=== PATIENT | male | born 1970 | race Caucasian/White ===

== ENCOUNTER 2023-06-21 10:00 | Outpatient (OUT) | payer OTHER, SELFPAY ==
--- NOTE | 2023-06-21 10:13 | XR_ITS ---
[address] [address] Patient Name: ELY STARKEY MRN: [id number] date: 1970 Sex: M Assigned Patient Location: RAD Current Patient Location: RAD Accession/Order Number: [id number] Exam Date: 06/21/2023 10:22 Report Date: 06/21/2023 12:12 At the request of: PRATIK STONE Procedure: XR knee RT 4V EXAM: XR knee RT 4V HISTORY: Acute Pain Of Right Knee M25.561 COMPARISON: None. TECHNIQUE: 4 views FINDINGS: No acute fracture or dislocation. Mild degenerative changes of the knee. Mild soft tissue swelling. XR/XR knee RT 4V IMPRESSION: Degenerative changes as above. Electronically authenticated by: ENDY AYOUB Date: 06/21/2023 12:12
== END 2023-06-21 10:01 | disposition home or self-care (01) ==
LOC: RAD 10:00
PROVIDERS: Family Provider Family Medicine; Visit Provider Orthopaedic Surgery
DX: M25.561 Pain in right knee (principal)
CPT/HCPCS: 73564

== ENCOUNTER 2023-07-08 08:41 | Outpatient (OUT) | payer OTHER, SELFPAY ==
--- NOTE | 2023-07-08 08:45 | MR_ITS ---
The [address] [address] Patient Name: ELY STARKEY MRN: [id number] date: 1970 Sex: M Assigned Patient Location: MRI Current Patient Location: MRI Accession/Order Number: [id number] Exam Date: 07/08/2023 09:00 Report Date: 07/08/2023 10:16 At the request of: PRATIK STONE Procedure: MR knee RT wo con EXAM: MR knee RT wo con REASON FOR EXAM: Acute Pain Of Right Knee M25.561. TECHNIQUE: Multiplanar, multisequence imaging of the right knee was performed without contrast COMPARISON: Plain radiograph 06/21/2023. FINDINGS: Laterally, the iliotibial band, fibular collateral ligament, popliteus tendon and biceps tendon are intact. The ACL is intact. Lateral meniscus demonstrates normal morphology and signal without tear. Low to intermediate grade chondrosis of the lateral compartment. Medially, the medial collateral ligament is intact. The PCL is intact. The medial meniscus demonstrates normal morphology and signal without tear. Diffuse intermediate grade chondrosis of the lateral compartment with more focal deep chondrosis and deep fissuring involving the central and notch third of the medial femoral condyle central weightbearing. Subchondral marrow edema is present this level. The extensor mechanism is intact. Mild thickening and intermediate signal patella tendon is consistent with tendinosis. No tear. Intermediate grade chondrosis the patellofemoral cartilage. The bone marrow signal is without fracture. Trace joint effusion. The regional musculature is without muscle strain or tendon tear. MR/MR knee RT wo con IMPRESSION: 1. Tricompartmental chondrosis, most significant the medial compartment. 2. Intact menisci, cruciate and collateral ligaments. 3. 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 4. Trace joint effusion Electronically authenticated by: ELY BOWMAN Date: 07/08/2023 10:16
== END 2023-07-08 08:42 | disposition home or self-care (01) ==
LOC: MRI 08:41
PROVIDERS: Family Provider Family Medicine; Visit Provider Orthopaedic Surgery
DX: M25.561 Pain in right knee (principal); M25.461 Effusion, right knee
CPT/HCPCS: 73721

== ENCOUNTER 2024-04-11 20:55 | Outpatient (OUT) | payer OTHER, SELFPAY ==
--- OUTSIDE RECORDS SUMMARY | 2024-04-11 21:03 | XMS_ITS | CCD ---
Author Organization [facility] Care Team Providers Care Magazine Hand Name Role Phone Carl SALCIDO, Earline La Attending Unavailable Geovanni Morales Unavailable MD Karen Shafer Primary Care Provider [phone] MD Geovanni Morales Attending Provider Geovanni Morales Admitting Unavailable Geovanni Morales Attending Unavailable Karen Shafer Primary Care Unavailable Genia Sam Attending Unavailable Genia Sam Admitting Unavailable Soni [facility] Primary Care Unavailable CASA PAZ Attending Unavailable KAREN SHAFER Attending Unavailable Medications Current Medications Medication Drug Class(es) Dates Sig (Normalized) Sig (Original) [place] (No Known Home Meds) (1 source) Start: 08-12-2022 [place] (No Known Home Meds) Active August 12, 2022 12:00am Completed/Discontinued Medications Medication Drug Class(es) Dates Sig (Normalized) Sig (Original) amoxicillin 875 mg / clavulanate 125 mg oral tablet (1 source) Penicillin-class Antibacterial Start: 03-25-2022 End: 08-12-2022 take 1 tablet by mouth every eight hours Amoxicillin-Pot Clavulanate Discontinued 1 TAB PO Q8H 30 10 March 24, 2022 11:00pm August 12, 2022 9:49am Problems Active Problems Problem Classification Problem Date Documented Da te Episodic/Chronic Diverticulosis and diverticulitis (3 sources) Diverticulitis; Translations: [Diverticulitis of intestine, part unspecified, without perforation or abscess without bleeding] Chronic Other aftercare (1 source) Encounter for follow-up examination after completed treatment for conditions other than malignant neoplasm; Translations: [Encounter for follow-up examination after completed treatment for conditions other than malignant neoplasm] Onset: 12-21-2022 Episodic Past or Other Problems Problem Classification Problem Date Documented Da te Episodic/Chronic Abdominal pain (1 source) Left lower quadrant pain; Translations: [Left lower quadrant pain] Onset: 03-25-2022 Episodic Results Test Name Value Interpretation Reference Range Mariann Jackson 08-12-2022 L - -------- Specimen: [id number] Received: 08/12/22 Status: TOYA Feng Num: [id number] Spec Type: Surgical Subm Dr: Geovanni Morales MD Tissues: A Colon Biopsy (CECAL POLYP) Procedures: Filippo LEBRON/Dorys L4 -------- Age/ Patient Sex Location Account Attending Physician -------- Ely Varma/M [id number] Geovanni Morales MD -------- SPEC NUM: [id number] RECD: 08/12/22 STATUS: TOYA FENG NUM: [id number] JOSH: 08/12/22 DR: Geovanni Morales MD ENTERED: 08/12/[address] [facility] [address]: SPEC TYPE: Surgical DEPT: S ORDERED: HE/2, Gross/Micro L4 ORDERED: HE/2, Gross/Micro L4 Pathological Diagnosis Colon, cecum, polypectomy: - Tubular adenoma of colon, no high grade dysplasia seen. Clinical Information History of diverticulitis Gross Description Received in formalin labeled with the patient's name, number and cecal polyp is one fragment of soft galarza tissue measuring 0.5 x 0.3 x 0.2 cm. Entirely submitted in one cassette labeled A1. Microscopic Description Two glass slides with H E stained material have been examined. The microscopic findings support the above pathologic diagnosis. CPT Codes 25450 -------- -------- Specimen: [id number] Received: 08/12/22 Status: TOYA Feng Num: [id number] Spec Type: Surgical Subm Dr: Geovanni Morales MD Tissues: A Colon Biopsy (CECAL POLYP) Procedures: HE/2, Gross/Micro L4 -------- Patient: Ely Varma [id number] (Continued) -------- Signed (signature on file) Josh Carlos MD 08/13/22 09[address] [facility] CT abdomen pelvis w conon CT abdomen pelvis w [facility] [place] [address] CT Scan Report Signed Patient: Ely Varma MR#: [id number] : 1970 Acct:[id number] Age/Sex: 51 / M ADM Date: 03/25/22 Loc: ER Room: Type: [facility] Attending Dr: Copies to: Genia Sam PA-C Ordering Provider: Genia Sam PA-C Date of Service: 03/25/22 CT/CT abdomen pelvis w con: abd pain CT abdomen and pelvis withcontrast TECHNIQUE: Axial imaging with 2-D reconstruction.90 cc of Isovue-300. The CT exam was performed using one or more the following dose reduction techniques: Automated exposure control, adjustment of the MA and/or Kv according to patient size, or use of the iterative reconstruction technique. COMPARISON:None History: Intermittent abdominal pain. LEFT lower quadrant pain. Lung bases are unremarkable. No hepatic mass or intrahepatic biliary ductal dilatation identified. Normal density of the liver parenchyma identified. No gallbladder abnormality identified. No extrahepatic biliary ductal dilatation identified. There is no splenomegaly or splenic mass identified. No pancreatic mass or ductal dilatation identified. The adrenal glands are unremarkable. No nephrolithiasis or obstructive uropathy is identified. No abdominal aortic aneurysm identified. No significant retroperitoneal abnormalities identified. The small bowel loops are nondistended. The appendix is normal. Diffuse colonic diverticulosis identified. There is focal wall thickening of the possible portion of the sigmoid colon and distal portion of the descending colon with inflammation adjacent to numerous diverticula consistent with acute diverticulitis. No extraluminal air. No abscess. Urinary bladder is unremarkable. Reproductive structures are unremarkable. No free intraperitoneal air or fluid is identified. The bony structures are unremarkable. No subcutaneous soft tissue abnormality identified. CT/CT abdomen pelvis w con IMPRESSION: The distal descending and proximal sigmoid acute diverticulitis. No abscess. No pneumoperitoneum. Impression dictated by: Carmine Powers M.D.03/25/2022 4:54 PM Dictation Location: [place] [address] Transcribed By: [facility] 03/25/22 1654 Dictated By: Carmine Powers DO 03/25/22 1649 Signed By: 03/25/22 1654 Normal [facility] Complete Blood Count Auto Di ffon 03-25-2022 Basophils (Bld) [#/Vol] 0.0 10*3/uL Normal 0.0-0.2 [facility] Comment on above: Result Comment: PERF ORMED BY: [place] [address] PATHOLOGIST [employer]SE[employer] NAOMY MURPHY M.D. Performed By: #### C MP, CBC #### [facility] [address] [place] [address] [place] Basophils/100 WBC (Bld) 0.4 % Normal . [facility] Comment on above: Performed By: #### C MP, CBC #### [facility] [address] [place] [address] [place] Eosinophils (Bld) [#/Vol] 0.0 10*3/uL Normal 0.0-0.45 [facility] Comment on above: Performed By: #### C MP, CBC #### [facility] [address] [place] [address] [place] Eosinophils/100 WBC (Bld) 0.2 % Normal . [facility] Comment on above: Performed By: #### C MP, CBC #### [address] Erythrocyte distribution width (RBC) [Ratio] 13.6 % Normal 12.0-14.8 [facility] Comment on above: Performed By: #### C MP, CBC #### [address] Hematocrit (Bld) [Volume fraction] 49.6 % Normal 38.8-50.0 [facility] Comment on above: Performed By: #### C MP, CBC #### [address] Hemoglobin (Bld) [Mass/Vol] 16.6 g/dL Normal 13.0-17.0 [facility] Comment on above: Performed By: #### C MP, CBC #### [address] Lymphocytes (Bld) [#/Vol] 3.0 10*3/uL Normal 1.00-4.8 [facility] Comment on above: Performed By: #### C MP, CBC #### [address] Lymphocytes/100 WBC (Bld) 25.5 % Normal . [facility] Comment on above: Performed By: #### C MP, CBC #### [address] MCH (RBC) [Entitic mass] 29.6 pg Normal 27.5-35.2 [facility] Comment on above: Performed By: #### C MP, CBC #### [address] MCV (RBC) [Entitic vol] 88.3 fL Normal 83.5-101 [facility] Comment on above: Performed By: #### C MP, CBC #### [address] Mean Corpuscular HGB Conc 33.5 g/dL Normal 32.5-35.6 [facility] Comment on above: Performed By: #### C MP, CBC #### [facility] [address] [place] [address] [place] Monocytes (Bld) [#/Vol] 0.8 10*3/uL Normal 0.0-0.8 [facility] Comment on above: Performed By: #### C MP, CBC #### [facility] [address] [place] [address] [place] Monocytes/100 WBC (Bld) 7.1 % Normal . [facility] Comment on above: Performed By: #### C MP, CBC #### [facility] [address] [place] [address] [place] Neutrophils (Bld) [#/Vol] 7.8 10*3/uL High 1.8-7.7 [facility] Comment on above: Performed By: #### C MP, CBC #### [facility] [address] [place] [address] [place] Neutrophils/100 WBC (Bld) 66.8 % Normal . [facility] Comment on above: Performed By: #### C MP, CBC #### [facility] [address] [place] [address] [place] Nucleated RBC/100 WBC (Bld) [Ratio] 0.0 % Normal 0-0.5 [facility] Comment on above: Performed By: #### C MP, CBC #### [facility] [address] [place] [address] [place] Platelet mean volume (Bld) [Entitic vol] 8.6 fL Normal 6.6-10.1 [facility] Comment on above: Performed By: #### C MP, CBC #### [facility] [address] [place] [address] [place] Platelets (Bld) [#/Vol] 216 10*3/uL Normal 150-450 [facility] Comment on above: Performed By: #### C MP, CBC #### [facility] [address] [place] [address] [place] RBC (Bld) [#/Vol] 5.62 10*6/uL High 3.90-5.60 [facility] Comment on above: Performed By: #### C MP, CBC #### [address] WBC (Bld) [#/Vol] 11.7 10*3/uL High 4.5-11.0 [facility] Comment on above: Performed By: #### C MP, CBC #### [address] Comprehensive Metabolic Pane becca 03-25-2022 Albumin [Mass/Vol] 3.9 g/dL Normal 3.2-5.5 [facility] Comment on above: Performed By: #### C MP, CBC #### [address] Albumin/Globulin [Mass ratio] 1.1 {ratio} Normal [facility] Comment on above: Performed By: #### C MP, CBC #### [address] ALP [Catalytic activity/Vol] 83 U/L Normal 32-92 [facility] Comment on above: Performed By: #### C MP, CBC #### [address] ALT [Catalytic activity/Vol] 25 U/L Normal 10-60 [facility] Comment on above: Performed By: #### C MP, CBC #### [address] AST [Catalytic activity/Vol] 19 U/L Normal 10-42 [facility] Comment on above: Performed By: #### C MP, CBC #### [address] Bilirubin [Mass/Vol] 2.4 mg/dL High 0.3-1.2 [facility] Comment on above: Result Comment: Samp les from patients who have taken Naproxen have shown spurious elevation in Total Bilirubin levels. A metabolite of Naproxen, O-desmethylnaproxen, has been shown to interfere with the Heidi-Kathy method for measuring Total Bilirubin. Performed By: #### C MP, CBC #### [facility] [address] Calcium [Mass/Vol] 9.6 mg/dL Normal 8.2-10.2 [facility] Comment on above: Performed By: #### C MP, CBC #### [facility] [address] Chloride [Moles/Vol] 101 mmol/L Normal 95-114 [facility] Comment on above: Performed By: #### C MP, CBC #### [address] CO2 [Moles/Vol] 26.3 mmol/L Normal 22.0-30.0 [facility] Comment on above: Performed By: #### C MP, CBC #### [address] Creatinine [Mass/Vol] 0.95 mg/dL Normal 0.64-1.27 [facility] Comment on above: Performed By: #### C MP, CBC #### [place] [address] [place] Creatinine Clr Calc Pharmacy 104.97 [facility] Comment on above: Result Comment: PERF ORMED BY: [place] [address] PATHOLOGIST [employer] HOUSEK[employer] NAOMY MURPHY M.D. Performed By: #### C MP, CBC #### [address] Estimated GFR ( Gini > 60 [facility] Comment on above: Result Comment: GFR estimated reference range: According to KDOQI guidelines, <60 ml/min/1.73m2 is sufficient to diagnose a patient with chronic kidney disease. Performed By: #### C MP, CBC #### [address] Estimated GFR (Non- Am > 60 [facility] Comment on above: Performed By: #### C MP, CBC #### [address] [place] [address] [place] Globulin (S) [Mass/Vol] 3.7 g/dL Normal [facility] Comment on above: Performed By: #### C MP, CBC #### [address] Glucose [Mass/Vol] 151 mg/dL High 70-100 [facility] Comment on above: Result Comment: [facility] Glucose Reference Range is dependent on time and content of last meal. Glucose of more than 200 mg/dL in a nonstressed, ambulatory subject supports the diagnosis of Diabetes Mellitus. ADA recommended reference range Performed By: #### C MP, CBC #### [address] Potassium [Moles/Vol] 3.7 mmol/L Normal 3.5-5.1 [facility] Comment on above: Performed By: #### C MP, CBC #### [address] Protein [Mass/Vol] 7.6 g/dL Normal 6.1-7.9 [facility] Comment on above: Performed By: #### C MP, CBC #### [address] Sodium [Moles/Vol] 137 mmol/L Normal 136-146 [facility] Comment on above: Performed By: #### C MP, CBC #### [address] Urea nitrogen [Mass/Vol] 9 mg/dL Normal 9-23 [facility] Comment on above: Performed By: #### C MP, CBC #### [address] Urinalysison 03-25-2022 Appearance (U) Clear Normal Clear [facility] Comment on above: Order Comment: Name Collection Type:: Clean-Voided Midstream Performed By: #### U A #### [address] Bilirubin,Urine Negative Normal Negative [facility] Comment on above: Order Comment: Name Collection Type:: Clean-Voided Midstream Performed By: #### U A #### [facility] [address] [place] [address] [place] Color (U) Yellow Normal Yellow [facility] Comment on above: Order Comment: Name Collection Type:: Clean-Voided Midstream Performed By: #### U A #### [facility] [address] [place] [address] [place] Glucose Ql (U) Normal Normal Normal [facility] Comment on above: Order Comment: Name Collection Type:: Clean-Voided Midstream Performed By: #### U A #### [facility] [address] [place] [address] [place] Ketones Ql (U) Negative Normal Negative [facility] Comment on above: Order Comment: Name Collection Type:: Clean-Voided Midstream Performed By: #### U A #### [facility] [address] [place] [address] Leukocyte esterase Test strip Ql (U) Negative Normal Negative [facility] Comment on above: Order Comment: Name Collection Type:: Clean-Voided Midstream Performed By: #### U A #### [facility] [address] [place] [address] [place] Nitrite,Urine Negative Normal Negative [facility] Comment on above: Order Comment: Name Collection Type:: Clean-Voided Midstream Performed By: #### U A #### [facility] [address] [place] [address] [place] Occult Blood,Urine Negative Normal Negative [facility] Comment on above: Order Comment: Name Collection Type:: Clean-Voided Midstream Result Comment: PERF ORMED BY: [place] [address] PATHOLOGIST [employer] HOUSEK[employer] NAOMY MURPHY M.D. Performed By: #### U A #### [facility] [address] [place] [address] [place] pH (U) 6.5 [pH] Normal 5.0-9.0 [facility] Comment on above: Order Comment: Name Collection Type:: Clean-Voided Midstream Performed By: #### U A #### [facility] [address] [place] [id number] [place] Protein,Urine Negative Normal Negative [facility] Comment on above: Order Comment: Name Collection Type:: Clean-Voided Midstream Performed By: #### U A #### [facility] [address] [place] [id number] [facility] Specificy [place],Urine 1.010 Normal 1.001-1.030 [facility] Comment on above: Order Comment: Name Collection Type:: Clean-Voided Midstream Performed By: #### U A #### [facility] [address] Urobilinogen,Urine Normal Normal Normal [facility] Comment on above: Order Comment: Name Collection Type:: Clean-Voided Midstream Performed By: #### U A #### [facility] [address] [place], [place] [id number] [facility] Vital Signs Date Time Vital Sign Value Performing Clinician Facility 08-12-2022 11:23-0500 Diastolic blood pressure 78 mm[Hg] MD Karen Shafer Work Phone: [facility] 08-12-2022 11:23-0500 Heart rate 64 /min MD Karen Shafer Work Phone: [facility] 08-12-2022 11:23-0500 Respiratory rate 16 /min MD Karen Shafer Work Phone: [facility] 08-12-2022 11:23-0500 SaO2% (BldA) [Mass fraction] 97 % MD Karen Shafer Work Phone: [facility] 08-12-2022 11:23-0500 Systolic blood pressure 123 mm[Hg] MD Karen Shafer Work Phone: [facility] 08-12-2022 09:57-0500 Body height 175.26 cm MD Karen Shafer Work Phone: [facility] 08-12-2022 09:57-0500 Body temperature 98.3 [degF] MD Karen Shafer Work Phone: [facility] 08-12-2022 09:57-0500 Body weight 88.45 kg MD Karen Shafer Work Phone: [facility] 07-22-2022 14:15-0500 Body height 177.8 cm Geovanni Morales Other [employer] Other 07-22-2022 14:15-0500 Body mass index (BMI) [Ratio] 27.98 kg/m2 Geovanni Morales Other [employer] Other 07-22-2022 14:15-0500 Body weight 88.45 kg Geovanni Morales Other [employer] Other 07-22-2022 14:15-0500 Diastolic blood pressure 80 mm[Hg] Geovanni Morales Other [employer] Other 07-22-2022 14:15-0500 Systolic blood pressure 125 mm[Hg] Geovanni Morales Other [employer] Other Encounters Encounter Date Encounter Type Care Provider Facility Start: 03-21-2024 End: 03-21-2024 ambulatory KAREN SHAFER Not Available Start: 03-06-2024 End: 03-06-2024 ambulatory CASA PAZ Not Available Start: 08-12-2022 End: 08-12-2022 ambulatory Geovanni Morales Facility:[facility] Start: 08-12-2022 End: 08-12-2022 Admission to same day surgery center MD Karen Shafer Work Phone: [facility] Start: 08-12-2022 End: 08-12-2022 ambulatory MD Karen Shafer Work Phone: [facility] Work Phone: Start: 07-22-2022 End: 11-30-2022 ambulatory Geovanni Morales Other [facility] [employer] Other Start: 07-22-2022 [facility] visit new patient Geovanni Morales [facility] Start: 07-14-2022 ambulatory Earline Henry MD Facility:[facility] Start: 03-25-2022 End: 03-25-2022 Emergency department patient visit Genia Geronimo Cecy Facility:[facility] Procedures Date Procedure Procedure Detail Performing Clinician Start: 08-12-2022 Colonoscopy MD Karen valentine Work Phone: Plan of Treatment Date Care Activity Detail Author Start: 08-12-2022 [facility] Patient Education Hemorrhoids Di verticulosis (DC) Colon Polypectomy (DC) [facility] Work Phone: Payers Date Payer Category Payer Self-pay 2022 Unknown [id number] 1970 Unknown [id number] 1970 Unknown [id number] Unknown [id number] Unknown [id number] Social History Date Type Detail Facility Sex Assigned At [facility] [employer] Other Start: 08-12-2022 Tobacco smoking stat us NHIS Ex-smoker (finding) [facility] Start: 1970 Sex Assigned At Male F [facility] Goals Date Patient Goal Desired Activity /State History and physical note 08-12-2022 Note Date & Type Note Facility 08-12-2022 History and physical note Note Date/Time August 12, 2022 10:39am [facility] [address] [place] [address] Gastroenterology H&P Signed Patient: Ely Varma MR#: [id number] : 1970 Acct:[id number] Age/Sex: 52 / M Adm Date: 2 Loc: Room: Type: [facility] Attending Dr: Geovanni Morales MD Copies to: MD Karen Bruner MD~ Date of Service: 08/12/2022 HISTORY & PHYSICAL: Patient's history with special attention to the cardiovascular, pulmonary systems and the current problem was reviewed with the patient immediately prior to the procedure. Present medications and doses reviewed in the EMR. Allergies and pertinent laboratory tests were also reviewedat this time in the EMR. The physical examination, as below, was then performed. Indication, assessment and HPI: 52-year-old male presents for colonoscopy to evaluate history of recurrent diverticulitis. Completed antibiotics about 3 months prior. Bowel movements have returned to normal. Abdominal pain is completely resolved. Family history of GI malignancy? No PHYSICAL EXAMINATION Mouth and Pharynx : Moist mucus membranes, normal dentition Cardiac: Regular rate, regular rhythm Pulmonary: Clear to auscultation bilaterally, no wheezing Neurological: Alert and oriented x3, no focal deficits noted Abdomen: Abdomen soft, non-tender REVIEW OF SYSTEMS Constitutional: Denies malaise, fevers Cardiovascular: Denies chest pain, palpitations Respiratory: Denies shortness of breath, wheezing Gastrointestinal: Per HPI Genitourinary: Denies dysuria, polyuria Musculoskeletal: Denies joint swelling, joint stiffness Neurological: Denies numbness, tingling Integumentary: Denies rashes, skin lesions Endocrine: Denies fatigue, weight loss Written informed consent obtained from the patient. Risks (including but not limited to perforation, infection, bloating, bleeding, need for emergent surgeryand loss of life), benefits and alternatives explained and questions answered. The patient verbalized understanding. Based on history patient is an appropriate candidate for the procedure. Geovanni Morales MD Documented By: Geovanni Morales MD 08/12/22 1038 Signed By: <Electronically signed by Geovanni Morales MD> 08/12/22 1039 [facility] Work Phone: Procedure note 08-12-2022 Note Date & Type Note Facility 08-12-2022 Procedure note [facility] Evaluation note 07-22-2022 Note Date & Type Note Facility 07-22-2022 Evaluation note Encounter Date Diagnosis Assessment Notes Jun, Diverticulitis (ICD-10 - K57.92) Colonoscopy [facility] [employer] Other Evaluation note Note Date & Type Note Facility Evaluation note No assessment information availa cheryl [facility] Work Phone: History general Narrative - Reported Note Date & Type Note Facility History general Narrative - Reported Type Medical History diverticulitis Surgical History broken jaw - wired shut 1997 Surgical History hernia repair x2 Hospitalization History see above [facility] Other Hospital Discharge instructions Note Date & Type Note Facility Hospital Discharge instructions Additional Instructions DISCHARGE INSTRUCTIONS FOR COLONOSCOPY WHAT TO EXPECT: - You may feel full, gassy or cramping after your procedure. In some cases, this may be from a few hours to a day. Walking may help relieve the discomfort. - If you have polyp(s) removed you may note some minor bloody discharge after your first bowel movements. - You should begin to recover from anesthesia within 1 hour of the procedure, however may feel groggy for the next 24 hours. DO's AND DON'Ts: - Call your doctor right away if you have a hard abdomen, severe pain, are passing lots of bright red blood or clots. - Call your doctor if you develop any rashes, hives or difficulty breathing. - Let your doctor know if you have not had a bowel movement by 3 days after your procedure. - If you take 81 mg aspirin for your heart it is safe to resume this medication. - If you take other blood thinner medications your doctor will instruct you when these can safely be resumed. - Do NOT drive for 24 hours. - Do NOT operate machinery such as power tools, lawn mowers, snow blowers, sewing machines, etc. for 24 hours. - Avoid alcoholic beverages and drugs for allergies, nerves, or sleep. - Do NOT stay alone. Do NOT leave your child unattended. - Do NOT make important personal or business decisions or sign any legal documents. - Eat solid foods and drink liquids in smaller amounts than usual until normal appetite returns. If you should experience an upset stomach, liquids high in sugar content (soda, Ted-Aid, non-acid juices) are recommended. - You can resume normal activities tomorrow. FOLLOW UP & RECOMMENDATIONS: - Follow-up with Dr. Morales as needed - Notify the doctor if you have any problems. - Repeat colonoscopy in 5 years. - Follow up with PCP. - Office number [phone]. [facility] Work Phone: Reason for visit Narrative Note Date & Type Note Facility Reason for visit Narrative PATIENT HERE AT THE REQUEST OF DR KAREN SHAFER FOR EVALUATION & TREATMENT OF DIVERTICULITIS [employer] Other Summary Purpose Family History No Family History Records Found Relationship Condition Age at Onset Recorded Date/T stefan Not Specified Malignant melanoma of skin Unknown Dementia Unknown Thyroid trouble Unknown brother Diabetes mellitus Unknown grandparent Heart problem Unknown family member Diabetes mellitus Unknown Advance Directives No Advanced Directives Records Found Advance Directive Response Recorded Date/ Time Advance Directives No March 25, 022 2:56pm Chief Complaint and Reason for Visit Chief Complaint diverticulitis Additional Source Comments (unrecognized sect ion and content) No Status Records FoundNo Status Records FoundNo Status Records Found INFORMATION SOURCE (unrecogn ized section and content) DATE CREATED AUTHOR 06/15/2022 [facility] DATE CREATED AUTHOR AUTHOR'S ORGANIZ ATION 08/20/[address] [facility] DATE CREATED AUTHOR AUTHOR'S ORGANIZ ATION 03/23/2024 [facility] dical Specialists EPIC Care Teams (unrecognized sec tion and content) Team Status: Inactive Member Role Status Vicki Shafer MD Primary Care Provider Active Geovanni Morales MD Attending Provider Active Team Status: Active Member Role Status Vicki Shafer MD Primary Care Provider Active FOR RECORDS PERTAINING TO PATIENTS WHO ARE OR HAVE BEEN ENROLLED IN A CHEMICAL DEPENDENCY/SUBSTANCEABUSE PROGRAM, SOME INFORMATION MAY BE OMITTED. This clinical summary was aggregated from multiple sources. Caution should be exercised in using it in the provision of clinical care. This summary normalizes information from multiple sources, and as a consequence, information in this document may materially change the coding, format and clinical context of patient data. In addition, data may be omitted in some cases. CLINICAL DECISIONS SHOULD BE BASED ON THE PRIMARY CLINICAL RECORDS. [employer] provides no warranty or guarantee of the accuracy or completeness of information in this document.
== END 2024-04-11 20:56 | disposition home or self-care (01) ==
LOC: SLEEP 21:02
PROVIDERS: Family Provider Family Medicine; PCP Otolaryngology; Visit Provider Otolaryngology
DX: G47.33 Obstructive sleep apnea (adult) (pediatric) (principal)
CPT/HCPCS: 95811

== ENCOUNTER 2024-05-15 07:44 | Outpatient (OUT) | payer OTHER, SELFPAY ==
--- NOTE | 2024-05-15 | XR_ITS ---
The [address] [address] Patient Name: ELY STARKEY MRN: [id number] date: 1970 Sex: M Assigned Patient Location: Current Patient Location: Accession/Order Number: [id number] Exam Date: 05/15/2024 07:45 Report Date: 05/17/2024 06:27 At the request of: PRATIK STONE Procedure: XR elbow LT min 3V PROCEDURE: XR elbow LT min 3V HISTORY: LEFT ELBOW PAIN for 6 months COMPARISON: None. FINDINGS: BONES:No fracture, acute abnormality, or significant arthropathy. SOFT TISSUES:No visible soft tissue swelling. EFFUSION:None visible. OTHER: Negative. XR/XR elbow LT min 3V IMPRESSION: 1. No acute bone abnormality, refill degenerative joint disease, or degenerative enthesophytes to account for patient's symptoms. Electronically authenticated by: PRATIK MORIN Date: 05/17/2024 06:27
--- OUTSIDE RECORDS SUMMARY | 2024-05-15 07:46 | XMS_ITS | CCD ---
Author Organization [facility] Care Team Providers Care Herbicide Service Sales Representative Name Role Phone Carl SALCIDO, Earline La Attending Unavailable Geovanni Morales Unavailable MD Karen Shafer Primary Care Provider MD Geovanni Morales Attending Provider [phone] Geovanni Morales Admitting Unavailable Geovanni Morales Attending Unavailable Karen Shafer Primary Care Unavailable Genia Sam Attending Unavailable Genia Sam Admitting Unavailable Soni Karen Primary Care Unavailable CASA PAZ Attending Unavailable KAREN SHAFER Attending Unavailable CASA PAZ Attending Unavailable Medications Current Medications Medication Drug Class(es) Dates Sig (Normalized) Sig (Original) Mack (No Known Home Meds) (1 source) Start: 08-12-2022 Mack (No Known Home Meds) Active August 12, [...] for conditions other than malignant neoplasm] Onset: 08-12-2022 Episodic Past or Other Problems Problem Classification Problem Date Documented Da joshua Episodic/Chronic Abdominal pain (1 source) Left lower quadrant pain; Translations: [Left lower quadrant pain] Onset: 03-25-2022 Episodic Results Test Name Value Interpretation Reference Range Mariann Jackson 08-12-2022 L - -------- Specimen: [id number] Received: 08/12/22 Status: TOYA Feng Num: [id number] Spec Type: Surgical Subm Dr: Geovanni Morales MD Tissues: A Colon Biopsy (CECAL POLYP) Procedures: Filippo LEBRON/[place] -------- Age/ Patient Sex Location Account Attending Physician -------- Ely Varma 52/M [id number] Geovanni Morales MD -------- SPEC NUM: [id number] RECD: 08/12/22 STATUS: TOYA FENG NUM: [id number] JOSH: 08/12/22 DR: Geovanni Morales MD ENTERED: 08/12/[address] [facility] [address]: SPEC TYPE: Surgical DEPT: S ORDERED: [...] support the above pathologic diagnosis. CPT Codes 85792 -------- -------- Specimen: [id number] Received: 08/12/22 Status: TOYA Feng Num: [id number] Spec Type: Surgical Subm Dr: Geovanni Morales MD Tissues: A Colon Biopsy (CECAL POLYP) Procedures: HE/2, Gross/Micro L4 -------- Patient: Ely Varma [id number] (Continued) -------- Signed (signature on file) Josh Carlos MD 08/13/22 0946 [facility] CT abdomen pelvis w conon CT abdomen pelvis w [facility] [place] [address] CT Scan Report Signed Patient: Ely Varma MR#: [id number] : 1970 Acct:[id number] Age/Sex: 51 / M ADM Date: 03/25/22 Loc: ER Room: Type: [facility] Attending Dr: Copies to: Genia Sam [...] Carmine Powers M.D.03/25/2022 4:54 PM Dictation Location: [place] [address] Transcribed By: [facility] 03/25/22 1654 Dictated By: Carmine Powers DO 03/25/22 1649 Signed By: 03/25/[address] [facility] Complete Blood Count Auto Di ffon 03-25-2022 Basophils (Bld) [#/Vol] 0.0 10*3/uL Normal 0.0-0.2 [facility] Comment on above: Result Comment: PERF ORMED BY: [place] [address] PATHOLOGIST CLIENT SALES AND SERVICE OFFICER NAOMY MURPHY M.D. Performed By: #### C MP, CBC #### [address] Basophils/100 WBC (Bld) 0.4 % Normal . [facility] Comment on above: Performed By: #### C MP, CBC #### [facility] [address] [place] [address] Eosinophils (Bld) [#/Vol] 0.0 10*3/uL Normal 0.0-0.45 [facility] Comment on above: Performed By: #### C MP, CBC #### [address] [place] [address] [place] Eosinophils/100 WBC (Bld) 0.2 % Normal . [facility] Comment on above: Performed By: #### C MP, CBC #### [address] Erythrocyte distribution width (RBC) [Ratio] 13.6 % Normal 12.0-14.8 [facility] Comment on above: Performed By: #### C MP, CBC #### [address] Hematocrit (Bld) [Volume fraction] 49.6 % Normal 38.8-50.0 [facility] Comment on above: Performed By: #### C MP, CBC #### [address] Hemoglobin (Bld) [Mass/Vol] 16.6 g/dL Normal 13.0-17.0 [facility] Comment on above: Performed By: #### C MP, CBC #### [address] Lymphocytes (Bld) [#/Vol] 3.0 10*3/uL Normal 1.00-4.8 [facility] Comment on above: Performed By: #### C MP, CBC #### [address] Lymphocytes/100 WBC (Bld) 25.5 % Normal . [facility] Comment on above: Performed By: #### C MP, CBC #### [address] MCH (RBC) [Entitic mass] 29.6 pg Normal 27.5-35.2 [facility] Comment on above: Performed By: #### C MP, CBC #### [address] MCV (RBC) [Entitic vol] 88.3 fL Normal 83.5-101 [facility] Comment on above: Performed By: #### C MP, CBC #### [address] Mean Corpuscular HGB Conc 33.5 g/dL Normal 32.5-35.6 [facility] Comment on above: Performed By: #### C MP, CBC #### [address] Monocytes (Bld) [#/Vol] 0.8 10*3/uL Normal 0.0-0.8 [facility] Comment on above: Performed By: #### C MP, CBC #### [address] Monocytes/100 WBC (Bld) 7.1 % Normal . [facility] Comment on above: Performed By: #### C MP, CBC #### [address] Neutrophils (Bld) [#/Vol] 7.8 10*3/uL High 1.8-7.7 [facility] Comment on above: Performed By: #### C MP, CBC #### [address] Neutrophils/100 WBC (Bld) 66.8 % Normal . [facility] Comment on above: Performed By: #### C MP, CBC #### [place] [address] [place] Nucleated RBC/100 WBC (Bld) [Ratio] 0.0 % Normal 0-0.5 [facility] Comment on above: Performed By: #### C MP, CBC #### [place] [address] [place] Platelet mean volume (Bld) [Entitic vol] 8.6 fL Normal 6.6-10.1 [facility] Comment on above: Performed By: #### C MP, CBC #### [place] [address] [place] Platelets (Bld) [#/Vol] 216 10*3/uL Normal 150-450 [facility] Comment on above: Performed By: #### C MP, CBC #### [place] [address] [place] RBC (Bld) [#/Vol] 5.62 10*6/uL High 3.90-5.60 [facility] Comment on above: Performed By: #### C MP, CBC #### [address] WBC (Bld) [#/Vol] 11.7 10*3/uL High 4.5-11.0 [facility] Comment on above: Performed By: #### C MP, CBC #### [address] Comprehensive Metabolic Pane becca 03-25-2022 Albumin [Mass/Vol] 3.9 g/dL Normal 3.2-5.5 [facility] Comment on above: Performed By: #### C MP, CBC #### [address] Albumin/Globulin [Mass ratio] 1.1 {ratio} Normal [facility] Comment on above: Performed By: #### C MP, CBC #### [address] ALP [Catalytic activity/Vol] 83 U/L Normal 32-92 [facility] Comment on above: Performed By: #### C MP, CBC #### [address] ALT [Catalytic activity/Vol] 25 U/L Normal 10-60 [facility] Comment on above: Performed By: #### C MP, CBC #### [address] AST [Catalytic activity/Vol] 19 U/L Normal 10-42 [facility] Comment on above: Performed By: #### C MP, CBC #### [address] Bilirubin [Mass/Vol] 2.4 mg/dL High 0.3-1.2 [facility] Comment on above: Result Comment: Samp les from patients who have taken Naproxen have shown spurious elevation in Total Bilirubin levels. A metabolite of Naproxen, O-desmethylnaproxen, has been shown to interfere with the Jendrassik-Grof method for measuring Total Bilirubin. Performed By: #### C MP, CBC #### [facility] [address] Calcium [Mass/Vol] 9.6 mg/dL Normal 8.2-10.2 [facility] Comment on above: Performed By: #### C MP, CBC #### [facility] [address] Chloride [Moles/Vol] 101 mmol/L Normal 95-114 [facility] Comment on above: Performed By: #### C MP, CBC #### [address] CO2 [Moles/Vol] 26.3 mmol/L Normal 22.0-30.0 [facility] Comment on above: Performed By: #### C MP, CBC #### [address] Creatinine [Mass/Vol] 0.95 mg/dL Normal 0.64-1.27 [facility] Comment on above: Performed By: #### C MP, CBC #### [place] [address] [place] Creatinine Clr Calc Pharmacy 104.97 [facility] Comment on above: Result Comment: PERF ORMED BY: [place] [address] PATHOLOGIST CLIENT SALES AND SERVICE OFFICER NAOMY MURPHY M.D. Performed By: #### C MP, CBC #### [address] Estimated GFR ( Gini > 60 [facility] Comment on above: Result Comment: GFR estimated reference range: According to KDOQI guidelines, <60 ml/min/1.73m2 is sufficient to diagnose a patient with chronic kidney disease. Performed By: #### C MP, CBC #### [address] Estimated GFR (Non- Am > 60 [facility] Comment on above: Performed By: #### C MP, CBC #### [facility] [address] Globulin (S) [Mass/Vol] 3.7 g/dL Normal [facility] Comment on above: Performed By: #### C MP, CBC #### [facility] [address] Glucose [Mass/Vol] 151 mg/dL High 70-100 [facility] Comment on above: Result Comment: [place] Glucose Reference Range is dependent on time and content of last meal. Glucose of more than 200 mg/dL in a nonstressed, ambulatory subject supports the diagnosis of Diabetes Mellitus. ADA recommended reference range Performed By: #### C MP, CBC #### [address] Potassium [Moles/Vol] 3.7 mmol/L Normal 3.5-5.1 [facility] Comment on above: Performed By: #### C MP, CBC #### [address] Protein [Mass/Vol] 7.6 g/dL Normal 6.1-7.9 [facility] Comment on above: Performed By: #### C MP, CBC #### [address] Sodium [Moles/Vol] 137 mmol/L Normal 136-146 [facility] Comment on above: Performed By: #### C MP, CBC #### [address] Urea nitrogen [Mass/Vol] 9 mg/dL Normal 9-23 [facility] Comment on above: Performed By: #### C MP, CBC #### [address] Urinalysison 03-25-2022 Appearance (U) Clear Normal Clear [facility] Comment on above: Order Comment: Name Collection Type:: Clean-Voided Midstream Performed By: #### U A #### [address] Bilirubin,Urine Negative Normal Negative [facility] Comment on above: Order Comment: Name Collection Type:: Clean-Voided Midstream Performed By: #### U A #### [facility] [address] [place] [address] [place] Color (U) Yellow Normal Yellow [facility] Comment on above: Order Comment: Name Collection Type:: Clean-Voided Midstream Performed By: #### U A #### [facility] [address] [place] [address] [place] Glucose Ql (U) Normal Normal Normal [facility] Comment on above: Order Comment: Name Collection Type:: Clean-Voided Midstream Performed By: #### U A #### [facility] [address] Ketones Ql (U) Negative Normal Negative [facility] Comment on above: Order Comment: Name Collection Type:: Clean-Voided Midstream Performed By: #### U A #### [facility] [address] [place] [address] Leukocyte esterase Test strip Ql (U) Negative Normal Negative [facility] Comment on above: Order Comment: Name Collection Type:: Clean-Voided Midstream Performed By: #### U A #### [facility] [address] [place] [address] [place] Nitrite,Urine Negative Normal Negative [facility] Comment on above: Order Comment: Name Collection Type:: Clean-Voided Midstream Performed By: #### U A #### [facility] [address] [place] [address] [place] Occult Blood,Urine Negative Normal Negative [facility] Comment on above: Order Comment: Name Collection Type:: Clean-Voided Midstream Result Comment: PERF ORMED BY: [place] [address] PATHOLOGIST CLIENT SALES AND SERVICE OFFICER NAOMY MURPHY M.D. Performed By: #### U A #### [facility] [address] [place] [address] [place] pH (U) 6.5 [pH] Normal 5.0-9.0 [facility] Comment on above: Order Comment: Name Collection Type:: Clean-Voided Midstream Performed By: #### U A #### [facility] [address] [place] [id number] [place] Protein,Urine Negative Normal Negative [facility] Comment on above: Order Comment: Name Collection Type:: Clean-Voided Midstream Performed By: #### U A #### [facility] [address] [place] [id number] [facility] Specificy [place],Urine 1.010 Normal 1.001-1.030 [facility] Comment on above: Order Comment: Name Collection Type:: Clean-Voided Midstream Performed By: #### U A #### [facility] [address] Urobilinogen,Urine Normal Normal Normal [facility] Comment on above: Order Comment: Name Collection Type:: Clean-Voided Midstream Performed By: #### U A #### [facility] [address] [place], [place] [id number] [facility] Vital Signs Date Time Vital Sign Value Performing Clinician Facility 08-12-2022 11:23-0500 Diastolic blood pressure 78 mm[Hg] MD Karen Shafer Work Phone: [facility] 08-12-2022 11:23-0500 Heart rate 64 /min MD Karen Shafer Work Phone: [facility] 08-12-2022 11:23-0500 Respiratory rate 16 /min MD Karen Shafer Work Phone: [facility] 08-12-2022 11:23-0500 SaO2% (BldA) [Mass fraction] 97 % MD Karen Shafer Work Phone: [facility] 08-12-2022 11:23-0500 Systolic blood pressure 123 mm[Hg] MD Karen Shafer Work Phone: [facility] 08-12-2022 09:57-0500 Body height 175.26 cm MD Karen Shafer Work Phone: [facility] 08-12-2022 09:57-0500 Body temperature 98.3 [degF] MD Karen Shafer Work Phone: [facility] 08-12-2022 09:57-0500 Body weight 88.45 kg MD Karen Shafer Work Phone: [facility] 07-22-2022 14:15-0500 Body height 177.8 cm Geovanni Morales Other [employer] Other 07-22-2022 14:15-0500 Body mass index (BMI) [Ratio] 27.98 kg/m2 Geovanni Morales Other [employer] Other 07-22-2022 14:15-0500 Body weight 88.45 kg Geovanni Morales Other [employer] Other 07-22-2022 14:15-0500 Diastolic blood pressure 80 mm[Hg] Geovanni Morales Other [employer] Other 07-22-2022 14:15-0500 Systolic blood pressure 125 mm[Hg] Geovanni Morales Other [employer] Other Encounters Encounter Date Encounter Type Care Provider Facility Start: 04-19-2024 End: 04-19-2024 ambulatory CASA H TIMMIS Not Available Start: 03-21-2024 End: 03-21-2024 ambulatory KAREN SHAFER Not Available Start: 03-06-2024 End: 03-06-2024 ambulatory CASA H TIMMIS Not Available Start: 08-12-2022 End: 08-12-2022 ambulatory Geovanni Morales Facility:[facility] Start: 08-12-2022 End: 08-12-2022 Admission to same day surgery center MD Karen Shafer Work Phone: [facility] Start: 08-12-2022 End: 08-12-2022 ambulatory MD Karen Shafer Work Phone: [facility] Work Phone: Start: 07-22-2022 End: 07-22-2022 ambulatory Geovanni Morales Other [facility] [employer] Other Start: 07-22-2022 [facility] visit new patient Geovanni Morales [facility] Start: 07-14-2022 ambulatory Earline Henry MD Facility:[facility] Start: 03-25-2022 End: 03-25-2022 Emergency department patient visit Genia Sam Facility:[facility] Procedures Date Procedure Procedure Detail Performing Clinician Start: 08-12-2022 Colonoscopy MD Karen valentine Work Phone: Plan of Treatment Date Care Activity Detail Author Start: 08-12-2022 [facility] Patient Education Hemorrhoids Di verticulosis (DC) Colon Polypectomy (DC) [facility] Work Phone: Payers Date Payer Category Payer Self-pay 2022 Unknown [id number] 1970 Unknown [id number] 1970 Unknown [id number] [id number] 1970 Unknown [id number] Unknown [id number] [id number] Unknown [id number] [id number] [id number] Social History Date Type Detail Facility Sex Assigned At [employer] Other Start: 08-12-2022 Tobacco smoking stat us [facility] Ex-smoker (finding) [facility] Start: 1970 Sex Assigned At Male F [facility] Goals Date Patient Goal Desired Activity /State History and physical note 08-12-2022 Note Date & Type Note Facility 08-12-2022 History and physical note Note Date/Time August 12, 2022 10:39am [facility] [address] [place] [address] Gastroenterology H&P Signed Patient: Ely Varma MR#: [id number] : 1970 Acct:[id number] Age/Sex: 52 / M Adm Date: 2 Loc: Room: Type: [facility] Attending Dr: Geovanni Morales MD Copies to: [...] signed by Geovanni Morales MD> 08/12/22 1039 [facility] Work Phone: Procedure note 08-12-2022 Note Date & Type Note Facility 08-12-2022 Procedure note [facility] Evaluation note 07-22-2022 Note Date & Type Note Facility 07-22-2022 Evaluation note Encounter Date Diagnosis Assessment Notes Jun, Diverticulitis (ICD-10 - K57.92) Colonoscopy [employer] Other Evaluation note Note Date & Type Note Facility Evaluation note No assessment information availa ble [facility] Work Phone: History general Narrative - Reported Note Date & Type Note Facility History general Narrative - Reported Type Medical History diverticulitis Surgical History broken jaw - wired shut 1997 Surgical History hernia repair x2 Hospitalization History see above [employer] Other Hospital Discharge instructions Note Date & [...] Follow up with PCP. - Office number [phone]. [facility] Work Phone: Reason for visit Narrative Note Date & Type Note Facility Reason for visit Narrative PATIENT HERE AT THE REQUEST OF DR KAREN SHAFER FOR EVALUATION & TREATMENT OF DIVERTICULITIS [facility] [employer] Other Summary Purpose Family History No Family History Records Found Relationship Condition Age at Onset Recorded Date/T stefan Not Specified Malignant melanoma of skin Unknown Dementia Unknown Thyroid trouble Unknown brother Diabetes mellitus Unknown grandparent Heart problem Unknown family member Diabetes mellitus Unknown Advance Directives No Advanced Directives Records Found Advance Directive Response Recorded Date/ Time Advance Directives No March 25 022 2:56pm Chief Complaint and Reason for Visit Chief Complaint diverticulitis Additional Source Comments (unrecognized sect ion and content) No Status Records FoundNo Status Records FoundNo Status Records Found INFORMATION SOURCE (unrecogn ized section and content) DATE CREATED AUTHOR 06/15/2022 [facility] DATE CREATED AUTHOR AUTHOR'S ORGANIZ ATION 08/20/2022 [facility] DATE CREATED AUTHOR AUTHOR'S ORGANIZ ATION 2024 [facility] dical Specialists [facility] Care Teams (unrecognized sec tion and content) Team Status: Inactive Member Role Status Dates Karen Shafer MD Primary Care Provider Active Geovanni Morales MD Attending Provider Active Team Status: Active Member Role Status Dates Karen Shafer MD Primary Care Provider Active FOR [...] BE BASED ON THE PRIMARY CLINICAL RECORDS. [employer] [facility]. provides no warranty or guarantee of the accuracy or completeness of information in this document.
== END 2024-05-15 07:45 | disposition home or self-care (01) ==
LOC: EC 07:44
PROVIDERS: Family Provider Family Medicine; PCP Otolaryngology; Visit Provider Orthopaedic Surgery
DX: M25.522 Pain in left elbow (principal)
CPT/HCPCS: 36415; 73080; 82565

== ENCOUNTER 2024-05-15 08:34 | Outpatient (OUT) | payer OTHER, SELFPAY ==
[2024-05-15 09:27] LABS: Estimated GFR (African America >60 (>=60); Estimated GFR (Non-African Ame >60 (>=60)
== END 2024-05-15 08:35 | disposition home or self-care (01) ==
LOC: LAB 08:36
PROVIDERS: Family Provider Family Medicine; PCP Family Medicine; Visit Provider Orthopaedic Surgery
DX: M25.522 Pain in left elbow (principal)
CPT/HCPCS: 36415; 82565

== ENCOUNTER 2024-05-23 08:20 | Outpatient (OUT) | payer OTHER, SELFPAY ==
--- NOTE | 2024-05-23 08:26 | MR_ITS ---
[facility] [place] [id number] Patient Name: ELY STARKEY MRN: [id number] date: 1970 Sex: M Assigned Patient Location: MRI Current Patient Location: MRI Accession/Order Number: [id number] Exam Date: 05/23/2024 08:35 Report Date: 05/23/2024 15:09 At the request of: PRATIK STONE Procedure: MR elbow LT wo/w con EXAM: MR elbow LT wo/w con REASON FOR EXAM: Pain. TECHNIQUE: Multiplanar, multisequence imaging of the elbow was performed before and after the uneventful intravenous administration of gadolinium contrast COMPARISON: Radiographs 05/15/2024. FINDINGS: Laterally, the common extensor tendon origin demonstrates thickening and intermediate signal consistent with tendinosis. No tear. Visualized portions of the radial collateral, lateral ulnar collateral and annular ligaments appear intact. Medially, the common flexor tendon origin demonstrates normal thickness and signal without tendinosis or tear. The ulnar collateral ligament appears intact. The cubital tunnel is patent. The ulnar nerve is nonedematous. The distal triceps tendon appears intact. The distal biceps and brachialis tendons appear intact. The bone marrow signal is without fracture. No joint effusion. No discrete soft tissue mass identified. MR/MR elbow LT wo/w con IMPRESSION: 1. Common extensor tendinosis without tear. 2. No acute osseous abnormality. 3. No suspicious mass. Electronically authenticated by: ELY BOWMAN Date: 05/23/2024 15:09
--- OUTSIDE RECORDS SUMMARY | 2024-05-23 08:39 | XMS_ITS | CCD ---
Author Organization [facility] Inform ion Partnership [employer] [facility] Care Team Providers Care Marketing Communications Specialist Name Role Phone Carl SALCIDO, Earline La Attending Unavailable Geovanni Morales Unavailable MD Karen Shafer Primary Care Provider [phone] MD Geovanni Morales Attending Provider Geovanni Morales Admitting Unavailable Geovanni Morales Attending Unavailable Karen Shafer Primary Care Unavailable Genia Sam Attending Unavailable Genia Sam Admitting Unavailable Karen Shafer Primary Care Unavailable CASA PAZ Attending Unavailable KAREN SHAFER Attending Unavailable CASA PAZ Attending Unavailable ABDI RONDON Attending Unavailable CASA PAZ Referring Unavailable Medications Current Medications Medication Drug Class(es) Dates Sig (Normalized) Sig (Original) Duson (No Known Home Meds) (1 source) Start: 08-12-2022 Duson (No Known Home Meds) Active August 12, 2022 12:00am Completed/Discontinued Medications Medication Drug Class(es) Dates Sig (Normalized) Sig (Original) amoxicillin 875 mg / clavulanate 125 mg oral tablet (1 source) Penicillin-class Antibacterial Start: 03-25-2022 End: 08-12-2022 take 1 tablet by mouth every eight hours Amoxicillin-Pot Clavulanate Discontinued 1 TAB PO Q8H 30 March 24, 2022 11:00pm August 12, 2022 [...] Other Problems Problem Classification Problem Date Documented Benito lewis Episodic/Chronic Abdominal pain (1 source) Left lower quadrant pain; Translations: [Left lower quadrant pain] Onset: 03-25-2022 Episodic Results Test Name Value Interpretation Reference Range Facil jenny Jackson 08-12-2022 L - -------- Specimen: [id number] Received: 08/12/22 Status: TOYA Jung Num: [id number] Spec Type: Surgical Subm Dr: Geovanni Morales MD Tissues: A Colon Biopsy (CECAL POLYP) Procedures: Filippo LEBRON/Dorys L4 -------- Age/ Patient Sex Location Account Attending Physician -------- Ely Varma/M [id number] Geovanni Morales MD -------- SPEC NUM: [id number] RECD: 08/12/22 STATUS: TOYA BURKETTDenis NUM: [id number] JOSH: 08/12/22 DR: Geovanni Morales MD ENTERED: 08/12/[address] [facility] [address]: SPEC TYPE: Surgical DEPT: S ORDERED: [...] support the above pathologic diagnosis. CPT Codes 36782 -------- -------- Specimen: [id number] Received: 08/12/22 Status: SALASBernice Feng Num: [id number] Spec Type: Surgical Subm Dr: Geovanni Morales MD Tissues: A Colon Biopsy (CECAL POLYP) Procedures: HE/2, Gross/Micro L4 -------- Patient: Ely Varma [id number] (Continued) -------- Signed (signature on file) Josh Carlos MD 08/13/22 0946 [facility] CT abdomen pelvis w [place] [address] CT Scan Report Signed Patient: Ely Varma MR#: [id number] : 1970 Acct:[id number] Age/Sex: 51 / M ADM Date: 03/25/22 Loc: ER Room: Type: [facility] ER Attending Dr: Copies to: Genia Sam PA-C [...] Carmine Powers M.D.03/25/2022 4:54 PM Dictation Location: [place] [address] Transcribed By: [facility] 03/25/22 4519 Dictated By: Carmine Powers DO 03/25/22 1649 Signed By: 03/25/22 1654 Normal [facility] Complete Blood Count Auto Di ffon 03-25-2022 Basophils (Bld) [#/Vol] 0.0 10*3/uL Normal 0.0-0.2 [facility] Comment on above: Result Comment: PERF ORMED BY: [place] [address] PATHOLOGIST ANODE CREW SUPERVISOR NAOMY MURPHY M.D. Performed By: #### C MP, CBC #### [facility] [address] [place] [address] Basophils/100 WBC (Bld) 0.4 % Normal . [facility] Comment on above: Performed By: #### C MP, CBC #### [facility] [address] [place] [address] Eosinophils (Bld) [#/Vol] 0.0 10*3/uL Normal 0.0-0.45 [facility] Comment on above: Performed By: #### C MP, CBC #### [facility] [address] Eosinophils/100 WBC (Bld) 0.2 % Normal . [facility] Comment on above: Performed By: #### C MP, CBC #### [facility] [address] Erythrocyte distribution width (RBC) [Ratio] 13.6 % Normal 12.0-14.8 [facility] Comment on above: Performed By: #### C MP, CBC #### [address] Hematocrit (Bld) [Volume fraction] 49.6 % Normal 38.8-50.0 [facility] Comment on above: Performed By: #### C MP, CBC #### [address] Hemoglobin (Bld) [Mass/Vol] 16.6 g/dL Normal 13.0-17.0 [facility] Comment on above: Performed By: #### C MP, CBC #### [address] Lymphocytes (Bld) [#/Vol] 3.0 10*3/uL Normal 1.00-4.8 [facility] Comment on above: Performed By: #### C MP, CBC #### [address] Lymphocytes/100 WBC (Bld) 25.5 % Normal . [facility] Comment on above: Performed By: #### C MP, CBC #### [address] MCH (RBC) [Entitic mass] 29.6 pg Normal 27.5-35.2 [facility] Comment on above: Performed By: #### C MP, CBC #### [address] MCV (RBC) [Entitic vol] 88.3 fL Normal 83.5-101 [facility] Comment on above: Performed By: #### C MP, CBC #### [facility] [address] Mean Corpuscular HGB Conc 33.5 g/dL Normal 32.5-35.6 [facility] Comment on above: Performed By: #### C MP, CBC #### [facility] [address] [place] [address] [place] Monocytes (Bld) [#/Vol] 0.8 10*3/uL Normal 0.0-0.8 [facility] Comment on above: Performed By: #### C MP, CBC #### [facility] [address] [place] [address] [place] Monocytes/100 WBC (Bld) 7.1 % Normal . [facility] Comment on above: Performed By: #### C MP, CBC #### [facility] [address] [place] [address] [place] Neutrophils (Bld) [#/Vol] 7.8 10*3/uL High 1.8-7.7 [facility] Comment on above: Performed By: #### C MP, CBC #### [facility] [address] [place] [address] [place] Neutrophils/100 WBC (Bld) 66.8 % Normal . [facility] Comment on above: Performed By: #### C MP, CBC #### [facility] [address] [place] [address] [place] Nucleated RBC/100 WBC (Bld) [Ratio] 0.0 % Normal 0-0.5 [facility] Comment on above: Performed By: #### C MP, CBC #### [facility] [address] [place] [address] [place] Platelet mean volume (Bld) [Entitic vol] 8.6 fL Normal 6.6-10.1 [facility] Comment on above: Performed By: #### C MP, CBC #### [facility] [address] [place] [id number] [place] Platelets (Bld) [#/Vol] 216 10*3/uL Normal 150-450 [facility] Comment on above: Performed By: #### C MP, CBC #### [facility] [address] [place] [id number] [facility] RBC (Bld) [#/Vol] 5.62 10*6/uL High 3.90-5.60 [facility] Comment on above: Performed By: #### C MP, CBC #### [facility] [address] WBC (Bld) [#/Vol] 11.7 10*3/uL High 4.5-11.0 [facility] Comment on above: Performed By: #### C MP, CBC #### [facility] [address] Comprehensive Metabolic Pane becca 03-25-2022 Albumin [Mass/Vol] 3.9 g/dL Normal 3.2-5.5 [facility] Comment on above: Performed By: #### C MP, CBC #### [address] Albumin/Globulin [Mass ratio] 1.1 {ratio} Normal [facility] Comment on above: Performed By: #### C MP, CBC #### [place] [id number] [facility] ALP [Catalytic activity/Vol] 83 U/L Normal 32-92 [facility] Comment on above: Performed By: #### C MP, CBC #### [place] [id number] [facility] ALT [Catalytic activity/Vol] 25 U/L Normal 10-60 [facility] Comment on above: Performed By: #### C MP, CBC #### [place] [id number] [facility] AST [Catalytic activity/Vol] 19 U/L Normal 10-42 [facility] Comment on above: Performed By: #### C MP, CBC #### [place] [id number] [facility] Bilirubin [Mass/Vol] 2.4 mg/dL High 0.3-1.2 [facility] Comment on above: Result Comment: Samp les from patients who have taken Naproxen have shown spurious elevation in Total Bilirubin levels. A metabolite of Naproxen, O-desmethylnaproxen, has been shown to interfere with the Jendrassik-Grof method for measuring Total Bilirubin. Performed By: #### C MP, CBC #### [address] Calcium [Mass/Vol] 9.6 mg/dL Normal 8.2-10.2 [facility] Comment on above: Performed By: #### C MP, CBC #### [address] Chloride [Moles/Vol] 101 mmol/L Normal 95-114 [facility] Comment on above: Performed By: #### C MP, CBC #### [address] CO2 [Moles/Vol] 26.3 mmol/L Normal 22.0-30.0 [facility] Comment on above: Performed By: #### C MP, CBC #### [address] Creatinine [Mass/Vol] 0.95 mg/dL Normal 0.64-1.27 [facility] Comment on above: Performed By: #### C MP, CBC #### [address] Creatinine Clr Calc Pharmacy 104.97 [facility] Comment on above: Result Comment: PERF ORMED BY: [place] [address] PATHOLOGIST ANODE CREW SUPERVISOR NAOMY MURPHY M.D. Performed By: #### C MP, CBC #### [address] Estimated GFR ( Gini > 60 Normal [facility] Comment on above: Result Comment: GFR estimated reference range: According to KDOQI guidelines, <60 ml/min/1.73m2 is sufficient to diagnose a patient with chronic kidney disease. Performed By: #### C MP, CBC #### [place] [address] [place] Estimated GFR (Non- Am > 60 Normal [facility] Comment on above: Performed By: #### C MP, CBC #### [facility] [address] Globulin (S) [Mass/Vol] 3.7 g/dL Normal [facility] Comment on above: Performed By: #### C MP, CBC #### [facility] [address] Glucose [Mass/Vol] 151 mg/dL High 70-100 [facility] Comment on above: Result Comment: [facility] Glucose Reference Range is dependent on time and content of last meal. Glucose of more than 200 mg/dL in a nonstressed, ambulatory subject supports the diagnosis of Diabetes Mellitus. ADA recommended reference range Performed By: #### C MP, CBC #### [address] Potassium [Moles/Vol] 3.7 mmol/L Normal 3.5-5.1 [facility] Comment on above: Performed By: #### C MP, CBC #### [address] Protein [Mass/Vol] 7.6 g/dL Normal 6.1-7.9 [facility] Comment on above: Performed By: #### C MP, CBC #### [address] Sodium [Moles/Vol] 137 mmol/L Normal 136-146 [facility] Comment on above: Performed By: #### C MP, CBC #### [place] [address] [place] Urea nitrogen [Mass/Vol] 9 mg/dL Normal 9-23 [facility] Comment on above: Performed By: #### C MP, CBC #### [address] Urinalysison 03-25-2022 Appearance (U) Clear Normal Clear [facility] Comment on above: Order Comment: Name Collection Type:: Clean-Voided Midstream Performed By: #### U A #### [address] [place] [address] [place] Bilirubin,Urine Negative Normal Negative [facility] Comment on above: Order Comment: Name Collection Type:: Clean-Voided Midstream Performed By: #### U A #### [address] Color (U) Yellow Normal Yellow [facility] Comment on above: Order Comment: Name Collection Type:: Clean-Voided Midstream Performed By: #### U A #### [address] Glucose Ql (U) Normal Normal Normal [facility] Comment on above: Order Comment: Name Collection Type:: Clean-Voided Midstream Performed By: #### U A #### [address] Ketones Ql (U) Negative Normal Negative [facility] Comment on above: Order Comment: Name Collection Type:: Clean-Voided Midstream Performed By: #### U A #### [address] Leukocyte esterase Test strip Ql (U) Negative Normal Negative [facility] Comment on above: Order Comment: Name Collection Type:: Clean-Voided Midstream Performed By: #### U A #### [place] [address] [place] Nitrite,Urine Negative Normal Negative [facility] Comment on above: Order Comment: Name Collection Type:: Clean-Voided Midstream Performed By: #### U A #### [place] [address] [place] Occult Blood,Urine Negative Normal Negative [facility] Comment on above: Order Comment: Name Collection Type:: Clean-Voided Midstream Result Comment: PERF ORMED BY: [place] [address] PATHOLOGIST ANODE CREW SUPERVISOR NAOMY MURPHY M.D. Performed By: #### U A #### [facility] [address] [place] [address] [place] pH (U) 6.5 [pH] Normal 5.0-9.0 [facility] Comment on above: Order Comment: Name Collection Type:: Clean-Voided Midstream Performed By: #### U A #### [facility] [address] [place] [address] Protein,Urine Negative Normal Negative [facility] Comment on above: Order Comment: Name Collection Type:: Clean-Voided Midstream Performed By: #### U A #### [facility] [address] [place] [address] Specificy [place],Urine 1.010 Normal 1.001-1.030 [facility] Comment on above: Order Comment: Name Collection Type:: Clean-Voided Midstream Performed By: #### U A #### [address] Urobilinogen,Urine Normal Normal Normal [facility] Comment on above: Order Comment: Name Collection Type:: Clean-Voided Midstream Performed By: #### U A #### [address] Vital Signs Date Time Vital Sign Value Performing Clinician Facility 08-12-2022 11:23-0500 Diastolic blood pressure 78 mm[Hg] MD Karen Shafer Work Phone: [facility] 08-12-2022 11:23-0500 Heart rate 64 /min MD Karen Shafer Work Phone: [facility] 08-12-2022 11:23-0500 Respiratory rate 16 /min MD Karen Shafer Work Phone: [facility] 08-12-2022 11:23-0500 SaO2% (BldA) [Mass fraction] 97 % MD Karen Shafer Work Phone: [facility] 08-12-2022 11:23-0500 Systolic blood pressure 123 mm[Hg] MD Karen Shafer Work Phone: [facility] 08-12-2022 09:57-0500 Body height 175.26 cm MD Karen Shafer Work Phone: [facility] 08-12-2022 09:57-0500 Body temperature 98.3 [degF] MD Karen Shafer Work Phone: [facility] 08-12-2022 09:57-0500 Body weight 88.45 kg MD Karen Shafer Work Phone: [facility] 07-22-2022 14:15-0500 Body height 177.8 cm Geovanni Morales Other [facility] Other 07-22-2022 14:15-0500 Body mass index (BMI) [Ratio] 27.98 kg/m2 Geovanni Morales Other [facility] Other 07-22-2022 14:15-0500 Body weight 88.45 kg Geovanni Morales Other [facility] Other 07-22-2022 14:15-0500 Diastolic blood pressure 80 mm[Hg] Geovanni Morales Other [facility] Other 07-22-2022 14:15-0500 Systolic blood pressure 125 mm[Hg] Geovanni Chowdhuryy Other [facility] Other Encounters Encounter Date Encounter Type Care Provider Facility Start: 05-15-2024 End: 05-15-2024 ambulatory ABDI RONDON Not Available Start: 04-19-2024 End: 04-19-2024 ambulatory CASA H TIMMIS Not Available Start: 03-21-2024 End: 03-21-2024 ambulatory KAREN SHAFER Not Available Start: 03-06-2024 End: 03-06-2024 ambulatory CASA H TIMMIS Not Available Start: 08-12-2022 End: 08-12-2022 ambulatory Geovanni Morales Facility:[facility] Start: 08-12-2022 End: 08-12-2022 Admission to same day surgery center MD Karen Shafer Work Phone: [facility] Start: 08-12-2022 End: 08-12-2022 ambulatory MD Karen Shafer Work Phone: [facility] Work Phone: Start: 07-22-2022 End: 07-22-2022 ambulatory Geovanni Morales Other [facility] Other Start: 07-22-2022 [facility] visit new patient Geovanni Morales [facility] Start: 07-14-2022 ambulatory Earline Henry MD Facility:[facility] Start: 03-25-2022 End: 03-25-2022 Emergency department patient visit Genia Sam Facility:[facility] Procedures Date Procedure Procedure Detail Performing Clinician Start: 08-12-2022 Colonoscopy MD Karen valentine Work Phone: Plan of Treatment Date Care Activity Detail Author Start: 08-12-2022 [facility] Patient Education Hemorrhoids Di verticulosis (DC) Colon Polypectomy (DC) [facility] Work Phone: Payers Date Payer Category Payer Self-pay 2022 Unknown [id number] 1970 Unknown [id number] .16.84 [id number] 1970 Unknown [id number] .16.84 [id number] 1970 Unknown [id number] .16.84 [id number] 1970 Unknown [id number] .16.84 [id number] Unknown [id number] 2.16.8 [id number] Unknown [id number] 2.16.8 [id number] Social History Date Type Detail Facility Sex Assigned At [facility] Other Start: 08-12-2022 Tobacco smoking stat us NHIS Ex-smoker (finding) [facility] Start: 1970 Sex Assigned At Male F [facility] Goals Date Patient Goal Desired Activity /State History and physical note 08-12-2022 Note Date & Type Note Facility 08-12-2022 History and physical note Note Date/Time August 12, 2022 10:39am [facility] [address] [place] [address] Gastroenterology H&P Signed Patient: Ely Varma MR#: [id number] : 1970 Acct:[id number] Age/Sex: 52 / M Adm Date: 2 Loc: Room: Type: [facility] Attending Dr: Geovanni Morales MD Copies to: [...] Geovanni Morales MD> 08/12/[address] [facility] Work Phone: Procedure note 08-12-2022 Note Date & Type Note Facility 08-12-2022 Procedure note [facility] Evaluation note 07-22-2022 Note Date & Type Note Facility 07-22-2022 Evaluation note Encounter Date Diagnosis Assessment Notes Jun, Diverticulitis (ICD-10 - K57.92) Colonoscopy [facility] Other Evaluation note Note Date & Type Note Facility Evaluation note No assessment information availa ble [facility] Work Phone: History general Narrative - Reported Note Date & Type Note Facility History general Narrative - Reported Type Medical History diverticulitis Surgical History broken jaw - wired shut 1997 Surgical History hernia repair x2 Hospitalization History see above [facility] Other Hospital Discharge instructions Note Date & [...] Follow up with PCP. - Office number [phone]. [facility] Work Phone: Reason for visit Narrative Note Date & Type Note Facility Reason for visit Narrative PATIENT HERE AT THE REQUEST OF DR KAREN SHAFER FOR EVALUATION & TREATMENT OF DIVERTICULITIS [facility] [employer] Other Summary Purpose Family History No Family [...] content) DATE CREATED AUTHOR 06/15/2022 [facility] DATE CREATED AUTHOR AUTHOR'S ORGANIZ ATION 08/20/2022 [facility] DATE CREATED AUTHOR AUTHOR'S ORGANIZ ATION 05/17/2024 [facility] Care Teams (unrecognized sec tion and [...] BE BASED ON THE PRIMARY CLINICAL RECORDS. [employer] [facility]. provides no warranty or guarantee of the accuracy or completeness of information in this document.
== END 2024-05-23 08:21 | disposition home or self-care (01) ==
LOC: MRI 08:22
PROVIDERS: Family Provider Family Medicine; PCP Family Medicine; Visit Provider Orthopaedic Surgery
DX: R22.32 Localized swelling, mass and lump, left upper limb (principal); M77.8 Other enthesopathies, not elsewhere classified
CPT/HCPCS: 73223

== ENCOUNTER 2025-06-28 20:58 | Outpatient (OUT) | payer OTHER, SELFPAY ==
--- OUTSIDE RECORDS SUMMARY | 2025-03-26 09:00 | XMS_ITS ---
Author Organization [facility] Address [address] [place] [place] [address] Care Team Providers Care Director Of Claims Name Role Phone Karen Shafer Primary Care Provider Jarred Siddiqui [facility] [phone] REASON FOR VISIT BILAT KNEE PAIN Medications Medication SIG (Take, Route, Frequency, Duration) Notes Start Date End Date Status diclofenac sodium 75 mg 1 tab(s) orally 2 times a day for 30 days 07/24/2024ctive Encounters Encounter Location Date Provider Diagnosis [facility] [address] [place] [address] DR WYLIE [address] [place] [phone] 03/26/2025 Jarred Ta Acute pain of right knee M25.561 and Acute pain of left knee M25.562 Assessments Encounter Date Diagnosis (ICD Code) Assessment Notes Treatment Notes Treatment Clinical Notes Section Notes 03/26/2025 Acute pain of right knee (ICD-10 - M25.561) 03/26/2025ute pain of left knee (ICD-10 - M25.562) Plan Of Treatment Pending Test Test Name Order Date SCC- KNEE 4 VIEW LEFT-[id number] 03/26/2025 SCC- KNEE 4 VIEW RIGHT [id number] 03/26/2025 Progress Notes * ELY STARKEY CDOB: 1 (55 yo M)Acc No.[id number]:03/26/2025 Patient:?ELY STARKEY :Jocelyne Ta MDDOB:1970???Age:54 Y ???Sex:MaleDate:03/26/2025Phone:[phone]:[address], [place], [place]Pcp:Karen Shafer Subjective: * Chief Complaints: * 1 . BILAT KNEE PAIN. * Medical History: * Medications: T aking diclofenac sodium 75 mg delayed release tablet 1 tab(s) orally 2 times a day Objective: * Vitals: Assessment: * Assessment: 1.?Acute pain of right knee - M25.561???2.?Acute pain of left knee - M25.562??? Plan: * Treatment: ?Imaging: SCC- KNEE 4 VIEW RIGHT [id number].?Acute pain of left knee?Imaging: SCC- KNEE 4 VIEW LEFT-[id number] * Procedure Codes: 7 3564 X-ray Knee, complete 4 views Forms: * Images: * Electronic signature of Jarred Ta MD on 06/28/2025 at 09:01 PM ESTSign off status: Pending * Provider: Juan J Ta MD Date: 0 03/26/2025 Generated for Printing/Faxing/eTransmitting on:?06/28/2025 09:01 PM EST
--- OUTSIDE RECORDS SUMMARY | 2025-06-06 03:15 | XMS_ITS ---
Author Organization [facility] Address [address] [place] [address] Care Team Providers Care Manager Respiratory Care Name Role Phone Karen Shafer Primary Care Provider Jarred Siddiqui Unavailable [phone] Paty Beltran Unavailable [phone] Allergies No Known Allergies REASON FOR VISIT BILATERL KNEE, LEFT ELBOW RECHECK Medications Medication SIG (Take, Route, Frequency, Duration) Notes Start Date End Date Status diclofenac sodium 75 mg 1 tab(s) orally 2 times a day for 30 days 5Activediclofenac sodium 75 mg1 tab(s) orally 2 times a day for 30 days 5ActivedoxepinActivediclofenac sodium 75 mg1 tab(s) orally 2 times a day for 30 days07/24/2024Not-Taking Social History Tobacco Use: Social History Observation Description Date Details (start date - stop date) Never Smoker NA - NA AUDIT-C (Standard) Question Answer Notes Did you have a drink containing alcohol in the p ast year? No Qkhdgh6EbjastaeyyzxsgIvefjaeyUvevrxj Control (Standard) Question Answer Notes Tobacco use: Nonsmoker Encounters Encounter Location Date Provider Diagnosis [facility] [address] [place] [address] 06/06/2025 Paty Beltran Bilateral primary osteoarthritis of knee M17.0 Assessments Encounter Date Diagnosis (ICD Code) Assessment Notes Treatment Notes Treatment Clinical Notes Section Notes 06/06/2025 Bilateral primary osteoarthritis of knee (ICD-10 - M17.0) 06/06/2025Other Patient is doing well and may continue the diclofenac as needed. He will call with any concerns andotherwise follow-up as needed. Plan has been agreed upon by my supervising physician, [], MD. Plan Of Treatment Medication Medication Name Sig Start Date Stop Date Notes diclofenac sodium 75 mg 1 tab(s) orally 2 times a day for 30 days 06/06/2025 Treatment Notes Assessment Notes Other Patient is doing well and may continue the diclofenac as needed. He will call with any concerns and otherwise follow-up as needed. Plan has been agreed upon by my supervising physician, []MD. Next Appt Details Follow Up: prn, Reason: Progress Notes * ELY STARKEY CDOB: 1 (55 yo M)Acc No.[id number]:06/06/2025 Patient:?ELY STARKEY :?Paty Beltran CNPDOB:1970???Age:55 Y ???Sex:MaleDate:06/06/2025Phone:[phone]:[facility] [address], [place], [place]-[address]Yxf:Karen Deluca Soni Subjective: * Chief Complaints: * 1 . BILATERL KNEE, LEFT ELBOW RECHECK. * HPI: ???General Info per Patient Report:? Patient follows up today for recheck of his knees and elbow. Since on the diclofenac his pain has resolved. Very intermittently he will have some discomfort but nothing too uncomfortable. He is only taking it as needed now. * Medical History: G I Problems: , Sleep apnea, Inspire implant. * Surgical History: I nspire implant 07/2024. * Family History: N o Family History documented.. * Social History: E xercise regularly D o you exercise? Y es. W hat is your place of residence? W here do you live? P rivate home. A CARINA-C (Standard) D id you have a drink containing alcohol in the past year? N o, P oints 0 , I nterpretation N egative. T obacco Control (Standard) T obacco use: N onsmoker. * Medications: T aking diclofenac sodium 75 mg delayed release tablet 1 tab(s) orally 2 times a day , Taking doxepin , Not-Taking/PRN diclofenac sodium 75 mg delayed release tablet 1 tab(s) orally 2 times a day * Allergies: N .K.D.A. Objective: * Vitals: * Examination: ???General examination: ???The patient is a age-appropriate [], alert and oriented x3 and in no acute distress. Well-dressed and well-groomed. Stands with normal body position and in a calm mood. Good knee range of motion. Full elbow range of motion. Ambulates with a nonantalgic gait. specific exam: x-ray imaging studies: [] specific exam: x-ray imaging studies: Assement:. ??? Assessment: * Assessment: 1.?Bilateral primary osteoarthritis of knee - M17.0 (Primary)??? Plan: * Treatment: Start diclofenac delayed release tablet, sodium 75 mg, 1 tab(s), orally, 2 times a day, 30 days, 60, Refills 0.??2.?Others? Notes: Patient is doing well and may continue the diclofenac as needed. He will call with any concerns and otherwise follow-up as needed. Plan has been agreed upon by my supervising physician, []MD.?? * Follow Up: p rn Forms: * Images: * Electronic signature of Paty Beltran CNP on 06/28/2025 at 09:01 PM ESTSign off status: Pending * Provider: Balbir Beltran CNP Date: Generated for Printing/Faxing/eTransmitting on:?06/28/2025 09:01 PM EST History and Physical Notes * HPI (History of Present Illness) CategorySub-CategoryDetailNotesCategory NotesGeneral Info per Patient Report Patient follows up today for recheck of his knees and elbow. Since on the diclofenac his pain has resolved. Very intermittently he will have some discomfort but nothing too uncomfortable. He is only taking it as needed now. Examination CategorySub-CategoryDetailNotesCategory NotesGeneral examination The patient is a age-appropriate [], alert and oriented x3 and in no acute distress. Well-dressed and well-groomed. Stands with normal body position and in a calm mood. Good knee range of motion. Full elbow range of motion. Ambulates with a nonantalgic gait. specific exam: x-ray imaging studies: [] specific exam: x-ray imaging studies: Assement:
--- OUTSIDE RECORDS SUMMARY | 2025-06-28 21:01 | XMS_ITS | Clinical Summary ---
Author Organization [facility] Address [id number] [address] [place] [address] Care Team Providers Care Patrol Sergeant [employer] Name Role Phone Karen Shafer MD Primary Care Provider [phone] Social History Tobacco UseTypesPacks/DayYears UsedDateSmoking Tobacco: Never AssessedChildcare AnswerDate EhxdukgnRzyqumwmxRieybqr63/12/2019EmploymentAnswerDate Recorded VxedgntnboWkplcsg24/12/2019Purpose - LifeAnswerDate RecordedPurpose and direction in tpuxUsbkvrl71/11/2021Sex and Gender InformationValueDate Recorded Sex Assigned at BirthNot on fileLegal TiwUvvk2803/28/2015 12:03 PM EDTGender IdentityNot on fileSexual OrientationNot on file Plan of Treatment Not on file Medical Devices Not on file Insurance Care Teams Team MemberRelationshipSpecialtyStart DateEnd Date Karen Shafer MD [facility]
--- OUTSIDE RECORDS SUMMARY | 2025-06-28 21:01 | XMS_ITS | Encounter Summary ---
Author Organization [facility] Address [address] [place] [address] Care Team Providers Care Display And Banner Designer Name Role Phone Estelle Kim MD Primary Care Provider [phone] Rafia Gastelum MD Unavailable [phone] Dennys Obregon DO Unavailable Mckenzie Salomon DO Unavailable [phone] Encounter Details DateTypeDepartmentCare Team (Latest Contact Info)Zelzhjbztvo02/01/2024Clinisync Result Encounter [facility] External Department Unsolicited Provider, Generic External Data Social History Tobacco UseTypesPacks/DayYears UsedDateSmoking Tobacco: NeverSmokeless Tobacco: CurrentChewAlcohol UseStandard Drinks/WeekCommentsNot Currently0 (1 standard drink = 0.6 oz pure alcohol)AUDIT-CAnswerDate RecordedQ1: How often do you have a drink containing alcohol?Never03/26/2023Q2: How many drinks containing alcohol do you have on a typical day when you are drinking?Patient does not drink 03/26/2023Q3: How often do you have six or more drinks on one occasion?Never 3PHQ-2AnswerDate RecordedPatient Health Questionnaire-2 Score0 03/26/2023Sex and Gender InformationValueDate RecordedSex Assigned at BirthNot on fileLegal IauUfdi0711/04/2022 6:46 PM EDTGender IdentityNot on fileSexual OrientationNot on filedocumented as of this encounter Plan of Treatment Not on file documented as of this encounter Procedures Procedure NamePriorityDate/TimeAssociated DiagnosisCommentsMR ELBOW LEFT W AND WO IV HYKVSMNK46/01/2024 3:09 PM EDT documented in this encounter Results * MR elbow left w and wo IV contrast (05/23/2024 3:09 PM EDT)Anatomical Region LateralityModalityUpper Extremities, ElbowLeftMagnetic ResonanceSpecimen (Source)Anatomical Location / LateralityCollection Method / VolumeCollection TimeReceived Time05/23/2024 3:09 PM EDT Narrative 05/23/2024 3:11 PM EDT [facility] ?[address] ? [place] [address] ? Magnetic Resonance Report ? Signed ? Patient: ADALBERTO VARMA ?MR#: [id number] ?? : 1970 ?Acct:[id number] ?? Age/Sex: 54 / M ?ADM Date: 05/23/24 ?? Loc: MRI ? Attending Dr: Pratik Stone M.D. ? Ordering Physician: Pratik Stone M.D. ?? Date of Service: 05/23/24 ?? Procedure(s): MR elbow LT wo/w con ?? Accession Number(s): [id number] ? cc: ESTELLE KIM ; Pratik Stone M.D. ? [facility] ? [address] ? [place] [address] ? Patient Name: ?? ADALBERTO VARMA ? MRN: [id number] ? date: 1970 ?Sex: M ?? Assigned Patient Location: MRI ?? Current Patient Location: MRI ?? Accession/Order Number: [id number] ?? Exam Date: 05/23/2024 ??08:35 ?Report Date: 05/23/2024 ??15:09 ? At the request of: ?? PRATIK STONE ? Procedure: ??MR elbow LT wo/w con ? EXAM: MR elbow LT wo/w con ? REASON FOR EXAM: Pain. ? TECHNIQUE: Multiplanar, multisequence imaging of the elbow was performed ?? before ?? and after the uneventful intravenous administration of gadolinium contrast ? COMPARISON: Radiographs 05/15/2024. ? FINDINGS: ? Laterally, the common extensor tendon origin demonstrates thickening and ?? intermediate signal consistent with tendinosis. No tear. Visualized portions ?? of ?? the radial collateral, lateral ulnar collateral and annular ligaments appear ?? intact. ? Medially, the common flexor tendon origin demonstrates normal thickness and ?? signal without tendinosis or tear. The ulnar collateral ligament appears ?? intact. The cubital tunnel is patent. The ulnar nerve is nonedematous. ? The distal triceps tendon appears intact. The distal biceps and brachialis ?? tendons appear intact. ? The bone marrow signal is without fracture. No joint effusion. No discrete ?? soft ?? tissue mass identified. ? MR/MR elbow LT wo/w con ?? IMPRESSION: ? 1. Common extensor tendinosis without tear. ?? 2. No acute osseous abnormality. ?? 3. No suspicious mass. ? Electronically authenticated by: ADALBERTO ??GRACIE ?? Date: 05/23/2024 ??15:09 ? Dictated By: ?Adalberto Bowman M.D. ? Signed By: ?05/23/241510 ? DD/ 1509 ? TD/TT: ? Manager Of Hospital: Procedure Note Radiology, Radiologist, MD - 05/24/2024 [place] [address] Magnetic Resonance Report Signed Patient: ADALBERTO VARMA CMR#: [id number] : 1970Acct:[id number] Age/Sex: 54 / MADM Date: 05/23/24 Loc: MRI Attending Dr: Pratik Stone M.D. Ordering Physician: Pratik Stone M.D. Date of Service: 05/23/24 Procedure(s): elbow LT wo/w con Accession Number(s): [id number] cc: ESTELLE KIM ; Pratik Stone M.D. The [place] [address] Patient Name: ADALBERTO VARMA MRN: [id number] date: 1970 Sex: M Assigned Patient Location: MRI Current Patient Location: MRI Accession/Order Number: [id number] Exam Date: 05/23/2024 08:35 Report Date: 05/23/2024 15:09 At the request of: PRATIK STONE Procedure: MR elbow LT wo/w con EXAM: MR elbow LT wo/w con REASON FOR EXAM: Pain. TECHNIQUE: Multiplanar, multisequence imaging of the elbow was performed before and after the uneventful intravenous administration of gadolinium contrast COMPARISON: Radiographs 05/15/2024. FINDINGS: Laterally, the common extensor tendon origin demonstrates thickening and intermediate signal consistent with tendinosis. No tear. Visualizedportions of the radial collateral, lateral ulnar collateral and annular ligamentsappear intact. Medially, the common flexor tendon origin demonstrates normal thicknessand signal without tendinosis or tear. The ulnar collateral ligament appears intact. The cubital tunnel is patent. The ulnar nerve is nonedematous. The distal triceps tendon appears intact. The distal biceps and brachialis tendons appear intact. The bone marrow signal is without fracture. No joint effusion. No discrete soft tissue mass identified. MR/MR elbow LT wo/w con IMPRESSION: 1. Common extensor tendinosis without tear. 2. No acute osseous abnormality. 3. No suspicious mass. Electronically authenticated by: ADALBERTO BOWMAN Date: 05/23/2024 15:09 Dictated By: Adalberto Bowman M.D. Signed By:05/23/24 1511 DD/ 1509 TD/TT: Manager Of Hospital: Authorizing ProviderResult TypeResult StatusGeneric External Data ProviderIMG MRI PROCEDURESFinal Result documented in this encounter Visit Diagnoses Not on filedocumented in this encounter Care Teams Team MemberRelationshipSpecialtyStart DateEnd Date Estelle Kim MD [address] [place] [address] [facility] - [facility] Rafia Gastelum MD [address] [address] Cxdxvygavhfazz17/13/24 Dennys Obregon DO [address] [place] [address] Rzllnqzurkjzro93/13/24 Mckenzie Salomon DO [address] [place] [address] Referring PhysicianNeurology1/documented as of this encounter
--- OUTSIDE RECORDS SUMMARY | 2025-06-28 21:01 | XMS_ITS | Clinical Summary ---
Author Organization [facility] Address [address] [place] [address] Care Team Providers Care House Supervisor Name Role Phone Karen Shafer MD Primary Care Provider [phone] Rafia Gastelum MD Unavailable [phone] iMndiDennys DO Unavailable [phone] Mckenzie Salomon DO Unavailable [phone] Allergies No known active allergies Medications MedicationSigDispense QuantityRefillsLast FilledStart DateEnd DateStatus diclofenac (Voltaren) 75 MG EC tablet Take 75 mg by mouth every 12 (twelve) hours4Active zolpidem (Ambien) 5 MG tablet Indications:Primary insomniaTake 1 tablet (5 mg) by mouth as needed at bedtime for sleep 10 tablet 506Active doxepin (SINEquan) 10 MG capsule Indications:Primary insomniaTake 1-2 capsules at bedtime 60 capsule 5Active Active Problems ProblemNoted DateDiagnosed LwroEimsczlioyoksh78/15/2024NSAID long-term use 03/06/2024OSA (obstructive sleep apnea)03/06/2024Obstructive sleep apnea 03/26/2023 Family History Medical HistoryRelationNameCommentsAsthmaBrother 1Trent FeeneyDiabetesBrother 1 Milan FeeneyDiabetesBrother 2Brad FeeneyCar accidentFatherDementiaMotherDeb FeeneyThyroid diseaseMotherDeb FeeneyRelationNameStatusCommentsBrother 1Trent FeeneyBrother 2Brad FeeneyFatherDeceasedMotherDeb FeeneyAlive Social History Tobacco UseTypesPacks/DayYears UsedDateSmoking Tobacco: NeverSmokeless Tobacco: CurrentChew Tobacco Cessation:Ready to Q uit: Not Asked; Counseling Given: Not Answered Alcohol UseStandard Drinks/WeekCommentsNot Currently0 (1 standard drink = 0.6 oz pure alcohol)AUDIT-CAnswerDate RecordedQ1: How often do you have a drink containing alcohol?Never03/26/2023Q2: How many drinks containing alcohol do you have on a typical day when you are drinking?Patient does not drink03/26/2023Q3: How often do you have six or more drinks on one occasion?Never03/26/2023HQ-2 AnswerDate RecordedPatient Health Questionnaire-2 Ugqer356Sex and Gender InformationValueDate RecordedSex Assigned at BirthNot on fileLegal SexMale 11/04/2022 6:46 PM EDTGender IdentityNot on fileSexual OrientationNot on file Last Filed Vital Signs Vital SignReadingTime TakenCommentsBlood Sammmfmd008/8803 2:38 PM EDT Sfjei851411/16/2024 2:38 PM BTGVtaaotdqadi80 ??C (98.6 ??F)03/26/2023 3:23 PM EDT Respiratory Aoba4795 8:24 AM EDTOxygen Jazwhkolgw77%11/16/2024 2:38 PM EDTInhaled Oxygen Concentration--Qruqef95.8 kg (198 lb)11/07/2024 9:07 AM EDT Nqhbcl012.3 cm (5' 9 )11/07/2024 9:07 AM EDTBody Mass Index29.24011/07/2024 9:07 AM EDT Plan of Treatment Health MaintenanceDue DateLast DoneCommentsCT Ecsesrvvisyg1971FIT-DNA 1970FIT1970FOBT1970 8075Ggwizwoiedrop1971COVID-19 Vaccine ( season), 01/07/2021Influenza Vaccine (#1) 9803Hajcdsaocrf77, 02/20/2013Colorectal Cancer Screening 2Pneumococcal Vaccine: Pediatrics (0 to 5 Years) and At-Risk Patients (6 to 64 Years)Aged OutNo longer eligible based on patient's age to complete this topic Procedures Procedure NamePriorityDate/TimeAssociated DiagnosisCommentsCOLONOSCOPYRoutine 08/12/2022 12:00 PM EST from Last 3 Months or Most Recently Relevant to Health Maintenance Results * Colonoscopy (08/12/2022 12:00 PM EST)Anatomical RegionLateralityModality EndoscopySpecimen (Source)Anatomical Location / LateralityCollection Method / VolumeCollection TimeReceived Time08/12/2022 12:00 PM EST Narrative 08/12/2022 12:00 PM EST PERFORMED AT [facility] LOCATION:[id number] Procedure Note CONVERSION, GENERIC - 01/06/2023 PERFORMED AT [facility] LOCATION:[id number] Authorizing ProviderResult TypeResult StatusKaren Shafer MDENDOSCOPY PROCEDURE ORDERABLESFinal Result from Last 3 Months or Most Recently Relevant to Health Maintenance Insurance Care Teams Team MemberRelationshipSpecialtyStart DateEnd Date Karen Shafer MD [address] [place] [address] PCP - [facility]03/24/23 Rafia Gastelum MD [address] [place] [address] [place] [address] Lcnmxwszlrkpoz13/13/24 Dennys Obregon DO [address] [place] [address] Gmcjroevzinghw79/13/24 Mckenzie Salomon DO [address] [place] [address] Referring PhysicianNeurolog09/15/24
--- OUTSIDE RECORDS SUMMARY | 2025-06-28 21:02 | XMS_ITS | CCD ---
Author Organization [facility] Care Team Providers Care Set Illustrator Name Role Phone Carl SALCIDO, Earline La Attending Unavailable Geovanni Morales Unavailable MD Karen Shafer Primary Care Provider MD Geovanni Morales Attending Provider Karen Shafer MD Primary Care Provider [phone] Casa Paz MD Unavailable Murcek DO, Dennys W Unavailable Umm DO Nahomy Unavailable Roelk, Dennys Admitting Unavailable Murcek, Dennys Attending Unavailable [facility] Unavailable Murcek, Dennys Attending Unavailable [facility] Un[facility] Murcek, Dennys Admitting Unavailable MURCEK, DENNYS W Attending Unavailable TIMMIS, CASA H Referring Unavailable UMM, NAHOMY Attending Unavailable TIMMIS, CASA H Attending Unavailable MURCEK, DENNYS W Attending Unavailable TIMMIS, CASA H Referring Unavailable UMM, NAHOMY Attending Unavailable UMM, NAHOMY Attending Unavailable SONI [facility] Attending Unavailable TIMMIS, CASA H Attending Unavailable MURCEK, DENNYS W Attending Unavailable TIMMIS, CASA H Referring Unavailable MURCEK, DENNYS W Attending Unavailable MURCEK, DENNYS W Referring Unavailable MURCEK, DENNYS W Attending Unavailable TIMMIS, CASA H Referring Unavailable MURCEK, DENNYS W Attending Unavailable MURCEK, DENNYS W Attending Unavailable TIMMIS, CASA H Referring Unavailable KAREN SHAFER Unavailable KAREN SHAFER Unavailable Soni SALCIDO [facility] Primary Care Provider Nahomy Salomon DO Attending Provider Nahomy Salomon DO Unavailable Medications Current Medications MedicationDrug Class(es)DatesSig (Normalized)Sig (Original)cephalexin 500 mg oral capsule (5 sources)Cephalosporin AntibacterialStart: 08-11-2024 End: 98-55-9046mrmi 1 capsule by mouth in the morningcephalexin (Keflex) 500 MG capsule Indications: Obstructive sleep apnea Take 1 capsule (500 mg) by mouth in the morning and 1 capsule (500 mg) before bedtime. Do all this for 10 days. 20 capsule 08/11/2024 08/21/2024 Activediclofenac sodium 0.01 mg/mg topical gel (20 sources)Nonsteroidal Anti-inflammatory DrugStart: 50-08-8869npqcp 2 g topically four times dailydiclofenac 1 % topical gel APPLY 2 GRAMS TO THE AFFECTED AREA(S) BY TOPICAL ROUTE 4 TIMES PER DAY 04/19/2025 active Not Available Not Available Not AvailableStart: 29-27-4138vugr 1 tablet by mouth twice dailyDiclofenac Sodium 75 mg tablet,delayed release (DR/EC) Active 75 MG PO Twice daily August 02, 2024 1:00am Complies with drug therapyStart: 20-13-2833nfyc 1 tablet by mouth every twelve hoursdiclofenac (Voltaren) 75 MG EC tablet Take 75 mg by mouth every 12 (twelve) hours 09/27/2023 Activedoxepin hydrochloride 10 mg oral capsule (4 sources)Tricyclic AntidepressantStart: 04-26-2025 End: 43-71-4498Kcgvdpq 10 mg capsule Active 0 PO Daily at bedtime 60 April 26, 2025 1:42pm 1-2 orally daily at bedtime; Complies with drug therapytake 1-2 capsules by mouth at bedtimedoxepin 10 mg capsule TAKE 1-2 CAPSULES BY MOUTH AT BEDTIME active Not Available Not Available Not AvailableNo Name (No Known Home Meds) (1 source)Start: 30-38-5119Kd Name (No Known Home Meds) Active August 12, 2022 12:00amzolpidem tartrate 5 mg oral tablet (5 sources)gamma-Aminobutyric Acid-ergic AgonistStart: 12-20-2024 End: 22-25-9251aihi 1 tablet by mouth once daily at bedtimeZolpidem (Ambien) 5 mg tablet Active 5 MG PO Daily at bedtime April 26, 2025 12:00am Complies w ith drug therapy Completed/Discontinued Medications MedicationDrug Class(es)DatesSig (Normalized)Sig (Original)amoxicillin 875 mg / clavulanate 125 mg oral tablet (2 sources)Penicillin-class AntibacterialStart: 03-25-2022 End: 03-41-2237sozi 1 tablet by mouth every eight hoursAmoxicillin-Pot Clavulanate 875-125 mg tablet Discontinued 1 TAB PO Q8H 30 March 25, 2022 12:00am August 12, 2022 10:49am Problems Active Problems Problem ClassificationProblemDateDocumented DateEpisodic/ChronicDisorders of lipid metabolism (2 sources)Mixed hyperlipidemia; Translations: [Mixed hyperlipidemia]Onset: 04-26-2025 Resolved: 90-52-9310PhfpuheEulcbliliqksvq and diverticulitis (20 sources)Diverticulitis; Translations: [Diverticulitis of intestine, part unspecified, without perforation or abscess without bleeding]Onset: 03-06-2024 ChronicComment on above:Problem List clean-up per request of Phys. EHR Cmte Miscellaneous mental health disorders (8 sources)Primary insomnia; Translations: [Primary insomnia]Onset: 04-19-2025 Resolved: 274340-63-4456BzanqmzEbkxsgcycndqmd (4 sources)Primary gonarthrosis, bilateral; Translations: [Bilateral primary osteoarthritis of knee]Onset: 04-19-2025 Resolved: 94-78-8200CxqxeceAsprk connective tissue disease (4 sources)Lateral epicondylitis of left humerus; Translations: [Lateral epicondylitis, left elbow]Onset: 04-19-2025 Resolved: 89-31-5855AqueeeirFoyzr lower respiratory disease (8 sources)Snoring; Translations: [Snoring]04-20-8126RnbxxhjgFzqtgfrw codes; unclassified (20 sources)Obstructive sleep apnea syndrome; Translations: [Obstructive sleep apnea (adult) (pediatric)]Onset: 03-26-2023 Resolved: 283416-94-4961DmqxdilEcrjlyfu codes; unclassified (8 sources)Hypersomnia; Translations: [Hypersomnia, unspecified]10-12-2024 ChronicResidual codes; unclassified (1 source)Obstructive sleep apnea (adult) (pediatric); Translations: [Obstructive sleep apnea (adult) (pediatric)]Onset: 98-69-8477VgvurnvPnufrbqb codes; unclassified (4 sources)Other specified health status; Translations: [Other specified conditions influencing health status]54-49-4465Tpoqqlvq Past or Other Problems Problem ClassificationProblemDateDocumented DateEpisodic/ChronicOther aftercare (20 sources)group home current use of non-steroidal anti-inflammatory drug; Translations: [group home (current) use of non-steroidal anti-inflammatories (NSAID)]Onset: 743423-24-2931DtlgbyqzOvkpm aftercare (4 sources)Patient encounter status; Translations: [group home (current) use of non-steroidal anti-inflammatories (NSAID)]Onset: 241991-81-3175Oqrsunga Residual codes; unclassified (2 sources)Tobacco use and exposure - finding; Translations: [Tobacco use]Onset: 04-19-2025 Resolved: 81-03-1845Ujjcglbu Results Test NameValueInterpretationReference RangeFacilityCBC panel Auto (Bld)on 53-44-6394Phreqcjfzxe distribution width (RBC) [Ratio]13.6 %Invalid Interpretation Code11.6-15.4[facility] ([facility])Hematocrit (Bld) [Volume fraction]51.4 %High37.5-51.0[facility] ([facility])Hemoglobin (Bld) [Mass/Vol] 17.4 g/dLInvalid Interpretation Code13.0-17.7[facility] ([facility])MCH (RBC) [Entitic mass]31.2 pgInvalid Interpretation Code26.6-33.0[facility] ([facility])MCHC (RBC) [Mass/Vol]33.9 g/dLInvalid Interpretation Code31.5-35.7[facility] ([facility])MCV (RBC) [Entitic vol]92 fLInvalid Interpretation Kshg01-13 [facility] ([facility])Nucleated RBC/100 WBC (Bld) [Ratio]NPInvalid Interpretation CodeLabcorp ([facility])Platelets (Bld) [#/Vol]197 10*3/uL Invalid Interpretation Krsm706-720Pdesiad ([facility])RBC (Bld) [#/Vol]5.58 10*6/uLInvalid Interpretation Code4.14-5.80[facility] ([facility])WBC (Bld) [#/Vol]5.4 10*3/uLInvalid Interpretation Code3.4-10.8[facility] ([facility]) Comprehensive metabolic 2000 panelon 60-57-4977Ktpdged [Mass/Vol]4.5 g/dLInvalid Interpretation Code3.8-4.9[facility] ([facility])ALP [Catalytic activity/Vol] 83 U/LInvalid Interpretation Wtsr02-585Evageqe ([facility])ALT [Catalytic activity/Vol]41 U/LInvalid Interpretation Code0-44[facility] ([facility])AST [Catalytic activity/Vol]27 U/LInvalid Interpretation Code0-40[facility] ([facility])Bilirubin [Mass/Vol]1.2 mg/dLInvalid Interpretation Code0.0-1.2[facility] ([facility])Calcium [Mass/Vol]9.4 mg/dLInvalid Interpretation Code8.7-10.2 [facility] ([facility])Chloride [Moles/Vol]102 mmol/LInvalid Interpretation Ntxj51-136Jpauzew ([facility])CO2 [Moles/Vol]22 mmol/LInvalid Interpretation Lhnc22-56Ypbbpht ([facility])Creatinine [Mass/Vol]0.96 mg/dL Invalid Interpretation Code0.76-1.27[facility] ([facility])GFR/1.73 sq M.predicted among non-blacks MDRD (S/P/Bld) [Vol rate/Area]95 mL/min/{1.73_m2} Invalid Interpretation Code>59[facility] ([facility])Globulin (S) [Mass/Vol] 3.0 g/dLInvalid Interpretation Code1.5-4.5[facility] ([facility])Glucose [Mass/Vol]97 mg/dLInvalid Interpretation Vcxi81-76Gaczpct ([facility]) Potassium [Moles/Vol]4.3 mmol/LInvalid Interpretation Code3.5-5.2[facility] ([facility])Protein [Mass/Vol]7.5 g/dLInvalid Interpretation Code6.0-8.5 [facility] ([facility])Sodium [Moles/Vol]139 mmol/LInvalid Interpretation Code 134-144[facility] ([facility])Urea nitrogen [Mass/Vol]16 mg/dLInvalid Interpretation Code6-24[facility] ([facility])Urea nitrogen/Creatinine [Mass ratio]17 mg/mgInvalid Interpretation Code9-20[facility] ([facility])HEMOGLOBIN A1Con 69-92-9646MrV7n (Bld) [Mass fraction]5.4 %Invalid Interpretation Code 4.8-5.6[facility] ([facility])Comment on above:Prediabetes: 5.7 - 6.4 Diabetes: >6.4 Glycemic control for adults with diabetes: <7.0Lipid 1996 panelon 95-56-3034Oizjtbvomdf [Mass/Vol]222 mg/fMOero912-671Wgzgdbx ([facility]) Cholesterol in HDL [Mass/Vol]37 mg/dLLow>39[facility] ([facility])Cholesterol in LDL [Mass/Vol]151 mg/dLHigh0-99[facility] ([facility])Cholesterol in VLDL [Mass/Vol]34 mg/dLInvalid Interpretation Code5-40[facility] ([facility]) Cholesterol.total/Cholesterol in HDL [Mass ratio]6.0 {ratio}High0.0-5.0[facility] ([facility])Comment on above:T. Chol/HDL Ratio Men Women 1/2 Avg.Risk 3.4 3.3 Avg.Risk 5.0 4.4 2X Avg.Risk 9.6 7.1 3X Avg.Risk 23.4 11.0LDL calc comment: NPInvalid Interpretation CodeLabcorp ([facility])Triglyceride [Mass/Vol]186 mg/dLHigh0-149[facility] ([facility])PROSTATE-SPECIFIC AGon 04-20-2025 Prostate specific Ag [Mass/Vol]0.7 ng/mLInvalid Interpretation Code0.0-4.0 [facility] ([facility])Comment on above:Dario ECLIA methodology. According to the [place] [employer], Serum PSA should decrease and remain at undetectable levels after radical prostatectomy. The AUA defines biochemical recurrence as an initial PSA value 0.2 ng/mL or greater followed by a subsequent confirmatory PSA value 0.2ng/mL or greater. Values obtained with different assay methods or kits cannot be used interchangeably. Results cannot be interpreted as absolute evidence of the presence or absence of malignant diseas e.No Panel Informationon 28-43-5560Nuhhksafn the stim to 1.5 as 1.6 appeared to be too strong for him Will get a PSG for inspire set up. Increased time to 9 hours. 30 minute delay 45 minute ramp time. Range changed to 1-2[employer] StatsNOBioquimicaNo Panel Informationon 83-56-7369Shrnc time changed to 25 minutes Voltage stayed at 1.1 but he has a ability to go up 7 steps [employer] StatsNOElasticsearch HealthcareNo Panel Informationon 16-39-1005Auhmxsh was program today for the 1st time Set at 0.6 Range 0.5-1.5 Daily 45 minutes Pause 15 minutes Duration 8 hours. He will gradually ramp upNOMS Bar & Club StatsNOBioquimicaECG 12 lead ECGon 56-25-6317UOD 12 lead [facility]AV[facility] [place] [address] Electrocardiograph Report Signed Patient: Adalberto Varma MR#: [id number] : 1970 Acct:[id number] Age/Sex: 54 / M ADM Date: 08/02/24 Loc: PS Room: Type: [facility] Attending Dr: Dennys Obregon DO Ordering Provider: Dennys Obregon DO Date of Service: 08/02/2407/16/1103 ECG/ECG 12 lead ECG: surgery 08/11/24 Copies to: Test Reason : Blood Pressure : */* mmHG Vent. Rate : 65 BPM Atrial Rate : 65 BPM P-R Int : 166 ms QRS Dur : 104 ms QT Int : 392 ms P-R-T Axes : 17 82 31 degrees QTcB Int : 407 ms Normal sinus rhythm with sinus arrhythmia Normal ECG No previous ECGs available Confirmed by ANOOP BELTRE MD ([id number]) on 08/02/2024 3:52:09 PM Referred By: Electronically Signed By: ANOOP BELTRE MD Transcribed By: MUS Signed By Anoop Beltre MD 1 10/03/[address] [place] [address] Physician [facility] Elbow - left WO and W contrast Jorge 39-57-[place], [place] [address] Magnetic Resonance Report Signed Patient: ADALBERTO VARMA MR#: [id number] : 1970 Acct:[id number] Age/Sex: 54 / M ADM Date: 05/23/24 Loc: MRI Attending Dr: Pratik Stone M.D. Ordering Physician: Pratik Stone M.D. Date of Service: 05/23/24 Procedure(s): MR elbow LT wo/w con Accession Number(s): [id number] cc: KAREN SHAFER ; Pratik Stone M.D. The [place] [address] Patient Name: ADALBERTO VARMA MRN: [id number] date: 1970 Sex: M Assigned Patient Location: MRI Current Patient Location: MRI Accession/Order Number: [id number] Exam Date: 05/23/2024 08:35 Report Date: 05/23/2024 [...] consistent with tendinosis. No tear. Visualized portions of the radial collateral, lateral ulnar collateral and annular ligaments appear intact. Medially, the common flexor tendon origin demonstrates normal thickness and signal without tendinosis or tear. The ulnar [...] 15:09 Dictated By: Adalberto Bowman M.D. Signed By: 05/23/24 1511 DD/ 1509 TD/TT: Coronary Care Unit Nurse:TBHRadiology, Radiologist, - 05/24/2024 [place] [address] Magnetic Resonance Report Signed Patient: ADALBERTO VARMA MR#: [id number] : 1970 Acct:[id number] Age/Sex: 54 / M ADM Date: 05/23/24 Loc: MRI Attending Dr: Pratik Stone M.D. Ordering Physician: Pratik Stone M.D. Date of Service: 05/23/24 Procedure(s): elbow LT wo/w con Accession Number(s): [id number] cc: KAREN SHAFER ; Pratik Stone M.D. The [place] [id number] Patient Name: ADALBERTO VARMA MRN: [id number] date: 1970 Sex: M Assigned Patient Location: MRI Current Patient Location: MRI Accession/Order Number: [id number] Exam Date: 05/23/2024 08:35 Report Date: 05/23/2024 [...] consistent with tendinosis. No tear. Visualized portions of the radial collateral, lateral ulnar collateral and annular ligaments appear intact. Medially, the common flexor tendon origin demonstrates normal thickness and signal without tendinosis or tear. The ulnar [...] 15:09 Dictated By: Adalberto Bowman M.D. Signed By: 05/23/24 1510 DD/ 1509 TD/TT: Coronary Care Unit [facility]: [facility] CenterRad[facility] Study observation (narrative)[facility] Elbow - left WO and W contrast IVOrdered By: Radiologist Radiology on 08-86-4260ZFDXUniversity Health [facility] Medical Center Work Phone: TBX CREATININEon 94-77-6619Vehsyztsid [Mass/Vol]0.90 mg/dL0.70 - 1.30 mg/dLUniversity Health Truman Medical CenterGFR/1.73 sq M.predicted CKD-EPI (S/P/Bld) [Vol rate/Area]>6060 - PINFUniversity Health Truman Medical CenterTB EGFR-NON AF GRENADIAN>6060 - PINF [facility] CenterCLINISYNAllendale County Hospital Vital Signs Date TimeVital SignValuePerforming DmskgmabsHmygeuoz57-56-6648 13:10-0400Body ymochz06.07 kgKaren Shafer MD Work Phone: [facility]09-04-2025 13:10-0400 Diastolic blood mopzqchg94 mm[Hg]Karen Shafer MD Work Phone: [facility]09-04-2025 13:10-0400 Heart rate76 /minKaren Shafer MD Work Phone: [facility]09-04-2025 13:10-0400 SaO2% (BldA) [Mass fraction]95 %Karen Shafer MD Work Phone: [facility]09-04-2025 13:10-0400 Systolic blood mm[Hg]Karen Shafer MD Work Phone: [facility]08-28-2025 01:00-0400 Body jxabeu775.26 cmDakota Quinn [place] [employer] 68-83 01:00-0400Body mass index (BMI) [Ratio]30.5 kg/e7Capax Quinn [place] [employer] 47-48 01:00-0400Body surface area Derived from formula2.13 j9Wvmrr Quinn [place] [employer] 62-43 01:00-0400Body kjdsco45.53 kgDakota Anthonye [place] [employer] 27-95 01:00-0400Diastolic blood mm[Hg] Terrell Quinn [place] [employer] 20-45 01:00-0400Heart rate63 /minDavid Cheyenne [place] [employer] 13-67 01:00-0261BxD1% (BldA) [Mass fraction]96 % Terrell Quinn [employer] 93-15 01:00-0400Systolic blood ezvyfgpc276 mm[Hg] Terrell Quinn [place] [employer] Work Phone: [phone] 14:38-0400Diastolic blood mazrlfic79 mm[Hg] Nahomy Umm DO Work Phone: [facility] CenterCpsalyzdtr15-29-1491 14:38-0400Heart rate84 /min Nahomy Umm DO Work Phone: [facility] CenterGdyovgmsxe45-95-8458 14:38-7361AbE9% (BldA) [Mass fraction]96 %Nahomy Umm DO Work Phone: [facility] CenterIvxzmtjvud02-28-9951 14:38-0400Systolic blood hkoswyxm897 mm[Hg]Nahomy Umm DO Work Phone: [facility] CenterIudescvynd60-38-4414 13:21-0500Diastolic blood mm[Hg]Nahomy Umm DO Work Phone: [facility] CenterUcfgyawqqg33-16-5569 13:21-0500Heart rate70 /min Nahomy Umm DO Work Phone: [facility] CenterEdzgdzlpeh97-24-2100 13:21-9171PzC7% (BldA) [Mass fraction]96 %Nahomy Umm DO Work Phone: [facility] CenterMbhaibrghh39-94-8042 13:21-0500Systolic blood qoksqmzy384 mm[Hg]Nahomy Umm DO Work Phone: [facility] CenterWcqvlrfnek05-75-0007 09:06-0500Body xzekmp663.3 cmBenjamin Murcek DO Work Phone: [phone] CenterSofyjysmsw22-58-1289 09:06-0500Body mass index (BMI) [Ratio]29.24 kg/f0Vcozvwtv Murcek DO Work Phone: [facility] CenterNcbaihpemr46-01-5389 09:06-0500Body hecfdj22.81 kgBenjamin Murcek DO Work Phone: [facility] CenterDibxycjcjn27-99-6116 15:15-0500Body hyybor677.3 cmBenjamin Murcek DO Work Phone: [facility] CenterMulswvsgsi80-91-4311 15:15-0500Body mass index (BMI) [Ratio]29.24 kg/e7Jfxmhmqv Murcek DO Work Phone: [phone] [place], [place] [address]Uzteglknqz58-94-0855 15:15-0500Body azkxgx45.81 kgBenjamin Murcek DO Work Phone: [phone] CenterMer[facility] CenterDptsjttgid08-32-5802 15:36-0500Body .3 cmBenjamin Murcek DO Work Phone: [phone] [place], [place] [address]Wriwhpairn41-19-4211 15:36-0500Body mass index (BMI) [Ratio]29.24 kg/k9Rfysfylx Murcek DO Work Phone: [phone] [place], [place] 8553311-13-2024 15:36-0500Body iqixfy25.81 kgBengertrudismin Murcek DO Work Phone: [phone] [place], [place] 8553309-23-2024 14:42-0400Body .3 cmBengertrudismin Murcek DO Work Phone: [phone] [place], [place] 8553309-23-2024 14:42-0400Body mass index (BMI) [Ratio]29.24 kg/h0Dzduntvg Murcek DO Work Phone: [phone])[facility] [place], [place] [address]Rzhcmwjjqe29-04-6779 14:42-0400Body maukkv03.81 kgBengertrudismin Murcek DO Work Phone: [phone] CenterIrubflmwsd86-08-2981 09:20-0400Body wmkisa613.3 cmCasa Paz MD Work Phone: [facility] CenterPqqzyxxfcf10-77-9642 09:20-0400Body mass index (BMI) [Ratio]29.24 kg/y4OnyddgCasa Paz MD Work Phone: [facility] CenterFpflmmfruq16-84-3619 09:20-0400Body otkqds58.81 kgCasa Paz MD Work Phone: [place] [address]Dzfvntujly88-12-8643 09:20-0400Diastolic blood reklwdev10 mm[Hg]Casa Paz MD Work Phone: [facility] CenterYogcahtuzo37-12-6817 09:20-0400Systolic blood zsiatcen598 mm[Hg]Casa Paz MD Work Phone: [facility] CenterDhpzuivqfz17-04-1539 11:23-0500Diastolic blood xmxlczev51 mm[Hg]MD Karen Shafer Work Phone: [facility]12-21-2022 11:23-0500 Heart rate64 /minMD Karen Shafer Work Phone: [phone]12-21-2022 11:23-0500 Respiratory rate16 /minMD Jones Soni Work Phone: [phone]12-21-2022 11:23-0500 SaO2% (BldA) [Mass fraction]97 %MD Karen Shafer Work Phone: [phone]12-21-2022 11:23-0500 Systolic blood jasqekge180 mm[Hg]MD Karen Shafer Work Phone: [phone]12-21-2022 09:57-0500 Body dioiya344.26 cm Karen Shafer Work Phone: [phone]12-21-2022 09:57-0500 Body dwzfctrpmyt19.3 [degF]MD Karen Shafer Work Phone: [facility]12-21-2022 09:57-0500 Body .45 kg Karen Shafer Work Phone: [phone]11-30-2022 14:15-0500 Body ietuuv976.8 cmCameron Trentoncleve Other [employer] Other 11-30-2022 14:15-0500Body mass index (BMI) [Ratio] 27.98 kg/q9Xmzyqqk Kerrygoran Other [employer] Other 11-30-2022 14:15-0500Body gbrgof98.45 kgCamchristina Morales Other [employer] Other 11-30-2022 14:15-0500Diastolic blood adngebof97 mm[Hg] Geovanni Morales Other [employer] Other 11-30-2022 14:15-0500Systolic blood hgfinadg131 mm[Hg] Geovanni Morales Other [employer] Other Encounters Encounter DateEncounter TypeCare ProviderFacilityStart: 04-26-2025 End: 71-89-7806tyoeixxhyhBcqt Bower MD Work Phone: [facility] Work Phone: Start: 04-26-2025 End: 49-80-0342Utjxgsb encounter procedureNicrodríguez Salomon DO-[facility] [place] Work Phone: Start: 12-13-2220[facility] med mitochondrial disorders counselor&/risk factor redj spx 30 minDavid Cheyenne [place] Daily DealyFrank R. [facility] Start: 94-86-3030Lfsux health examinationDavidarcy [place] [employer] [facility] CenterWhittier Camera Service [employer] IntegrationFrank R. [facility] Hospital Start: 89-04-7191Grhgbeq preventive medicine new patient 40-64yrsDeloisa Quinn [employer] [place] [employer] Service [employer] IntegrationFrank R. [facility] Start: 12-20-2024 End: 89-98-6451Tlyjzx outpatient visit 25 minutesNicole Umm FITZGERALD Work Phone: aNA BELLEVUEComment on above:Primary insomnia (Primary Dx); ARETHA (obstructive sleep apnea); Hypersomnia; SnoringStart: 12-20-2024 End: 51-25-5477fyiovjcexaCSKWTW DANNERNot AvailableStart: 12-20-2024 End: 88-76-1577Fkmeou flowsheetNicole Umm DO Work Phone: [phone] BELLEVUEStart: 12-20-2024 End: 06-94-6815Oxpqet flowsheetNicole Umm DO Work Phone: [phone] BELLEVUEStart: 11-16-2024 End: 57-39-7531Uhmynf outpatient visit 25 minutesNicole Umm DO Work Phone: [phone] BELLEVUEComment on above:ARETHA (obstructive sleep apnea) (Primary Dx); Hypersomnia; SnoringStart: 11-16-2024 End: 82-31-6623bpzvwsjjpnFLPQFZ DANNERNot AvailableStart: 11-16-2024 End: 97-63-6804Wptyxw flowsheetNicole Umm DO Work Phone: [phone] BELLEVUEStart: 11-16-2024 End: 35-52-7944Nqxwlg flowsheetNicole Umm DO Work Phone: aNA BELLEVUEStart: 11-07-2024 End: 87-15-3023ahzcbhfrwxTZPSJFCR Brad GUTIERREZot AvailableStart: 10-12-2024 End: 97-55-8328Mdfdvy flowsheetNicole Umm DO Work Phone: [phone] BELLEVUEStart: 10-12-2024 End: 14-17-5344Lgicvy flowsheetNicole Umm DO Work Phone: [phone] BELLEVUEStart: 10-12-2024 End: 29-41-1278Yycyps outpatient visit 25 minutesNicole Umm DO Work Phone: ENA BELLEVUEComment on above:ARETHA (obstructive sleep apnea) (Primary Dx); Hypersomnia; SnoringStart: 10-12-2024 End: 75-19-9349mxbymhprgpZCGHCF DANNERNot AvailableStart: 09-26-2024 End: 24-44-9318Fdqyfw flowsheetBenjamin W Murcek DO Work Phone: [facility] SANDUSKYStart: 09-26-2024 End: 51-90-6497Dheupk flowsheetBenjamin W Murcek DO Work Phone: [facility] SANDUSKYStart: 09-26-2024 End: 85-14-4959Laakdq follow up visit related to original pxBenjamin W Murcek DO Work Phone: [facility] SANDUSKYComment on above:ARETHA (obstructive sleep apnea) (Primary Dx)Start: 09-26-2024 End: 18-25-2403doazmajswdSWNTCCVJ W MURCEKNot AvailableStart: 08-21-2024 End: 72-67-9709Pkpybd follow up visit related to original pxBenjamin W Murcek DO Work Phone: [facility] SANDUSKYComment on above:Obstructive sleep apnea (Primary Dx)Start: 08-21-2024 End: 89-48-4459wkhuusmmuqEAXXPQAR W MURCEKNot AvailableStart: 08-21-2024 End: 38-60-3105Wxibbv flowsheetBenjamin W Murcek DO Work Phone: [facility] SANDUSKYStart: 08-21-2024 End: 52-32-6733Quipip flowsheetBenjamin W Murcek DO Work Phone: [facility] SANDUSKYStart: 08-11-2024 End: 23-61-8618bdxpfaflhbZOYZAERZ W MURCEKNot AvailableStart: 08-11-2024 End: 16-54-1764vjluotinicYpponvni MurcekFacility:[facility] Hospitaltart: 08-02-2024 End: 90-61-8390bipdtjcknyReymzewg MurcekFacility:[facility] Hospitaltart: 68-97-5116Iusvlijwu for preprocedural cardiovascular examination Dennys Calderón [facility] Physician GroupStart: 07-05-2024 End: 44-90-9337Ryvvix outpatient visit 25 minutesDennys Obregon DO Work Phone: [facility] SANDUSKYComment on above:Obstructive sleep apnea (Primary Dx); Intolerance of continuous positive airway pressure (CPAP) ventilationStart: 07-05-2024 End: 78-28-5056tycwtfoyqrKSRLGLPA W MURCEKNot AvailableStart: 07-05-2024 End: 72-42-9750Kogela flowsheetDennys Obregon DO Work Phone: [facility] SANDUSKYStart: 07-05-2024 End: 47-03-7799Auzfli flowsheetBekeanu Obregon DO Work Phone: [facility] SANDUSKYStart: 06-27-2024 End: 92-79-4903abjvkjomgsRFICQBBO W MURJESSICAot AvailableStart: 05-23-2024 End: 71-27-7492Qnrkiuikv Result EncounterGeneric External Data ProviderNOMS External Department UnsolicitedStart: 05-23-2024 End: 96-00-2215Zqlkqgjsk Result EncounterGeneric External Data ProviderNOMS External Department UnsolicitedStart: 05-15-2024 End: 36-15-6251Jkcxtf outpatient new 45 minutesDennys Obregon DO Work Phone: [facility] SANDUSKYComment on above:Intolerance of continuous positive airway pressure (CPAP) ventilation (Primary Dx); Obstructive sleep apneaStart: 05-15-2024 End: 22-39-6246ddxbghcjxtPGBKABXV W MURCEAIot AvailableStart: 05-15-2024 End: 01-77-9544Wkzhrjgit Result EncounterGeneric External Data ProviderNOMS External Department UnsolicitedStart: 05-15-2024 End: 78-41-9916Jvsavgsae Result EncounterGeneric External Data ProviderNOMS External Department UnsolicitedStart: 04-19-2024 End: 20-35-6351Hzhknl flowsMoiz Paz MD Work Phone: noms ENTStart: 04-19-2024 End: 88-92-5977Jpzwpp flowsheetCasa Paz MD Work Phone: n[facility] CI ENTStart: 04-19-2024 End: 03-96-8779Ghfhtevce encounterCasa Paz MD Work Phone: [facility] NORWALKStart: 04-19-2024 End: 26-29-9374mltilebzvxHYFJYT H TIMMISNot AvailableStart: 04-19-2024 End: 24-80-9820Cgxtvy outpatient visit 25 minutesCasa Paz MD Work Phone: n[facility] CI ENTComment on above:Obstructive sleep apnea (Primary Dx)Start: 03-21-2024 End: 11-78-5514aepjkpjeadPMPU F BOWERNot AvailableStart: 03-06-2024 End: 13-33-1349rixdsflbrlHEMMVM Maggie Ignacio AvailableStart: 08-12-2022 End: 82-73-1910Iyqdpyfhy to same day surgery centerMD Karen Shafer Work Phone: [facility]-Digestive HealthStart: 08-12-2022 End: 40-31-9106zmsvmifawrKN Karen Shafer Work Phone: [facility] Work Phone: Start: 07-22-2022 End: 53-78-0829oaajqabndwKnjlfbv Digoran Other [facility] [employer] Other Start: 03-55-6809IEYE visit new patientGeovanni Morales [facility] GastroenterologyStart: 66-53-8639ciulwbuxaoIpghpbben Henry MDFacility:[facility] Procedures DateProcedureProcedure DetailPerforming ClinicianStart: 04-26-2025 End: 68-16-5534TtlidjmzovRoxxl Ware Start: 04-19-2025 End: 38-78-5565Xkow educationDavid Quinn Start: 04-19-2025 End: 69-37-7632Snjqqciis for malignant neoplasm of colonDavid Quinn Start: 04-19-2025 End: 98-36-1354Ieskadsvi for malignant neoplasm of prostateDavid Quinn Start: 00-90-7123Gspx lance implt smpl cn npgt prgrmg Nahomy Umm DO Work Phone: Start: 69-30-2684Sadr lance implt smpl cn npgt prgrmg Nahomy Umm DO Work Phone: Start: 02-83-9207Ijng lance implt smpl cn npgt prgrmg Nahomy Umm DO Work Phone: Start: 80-33-8057Zfx any jt upper extremity w/o & w/contr matrlGeneric External Data ProviderStart: 75-18-3093RDW CREATININE Generic External Data ProviderStart: 08-12-2022 End: 20-29-0341BbhmrxecqnrSN Karen Shafer Work Phone: Plan of Treatment DateCare ActivityDetailAuthorStart: 07-71-9468Ayhwunvsu for malignant neoplasm of colonNOMS HealthcareStart: 53-00-8382Rtejs; Results ReviewPhone; Results ReviewIN Gnip Start: 78-90-8980Fjkkzjaty vaccinationCACHE VALLEY [facility]ITAL Healthcare Start: 78-52-3605rdtrxfbuxa 1 % topical AlyceSnaptracs Start: 75-57-5977DlCndtay; NewPat PE Routine-60 InPerson; NewPat PE Routine-60IN Gnip Start: 14-56-8264ZYF panel - Blood by Automated count [facility] ([place])Start: 12-86-8303Ejnxteqgokoef metabolic 2000 panel - Serum or PlasmaLabcorp ([place])Start: 61-99-3634Ttvpesoacf A1c/Hemoglobin.total in BloodLabcorp ([place])Start: 52-48-0811Udvbq 1996 panel - Serum or Plasma [facility] ([place])Start: 10-15-5619Xpefbtzn specific Ag [Mass/volume] in Serum or PlasmaLabcorp ([place])Start: 12-20-2024 End: 28-25-0631Ivelapj encounter procedureANA BELLEVUEComment on above:Arrived Start: 12-20-2024 End: 39-63-2310YdeleweclgrxcssPfhvsxapofkatpm Sleep Center Routine ARETHA (obstructive sleep apnea) Expected: 12/20/2024 (Approximate), Expires: 12/20/2025NONH Healthcare Work Phone: comment on above:Expected: 12/20/2024 (Approximate), Expires: 12/20/2025Start: 12-07-2024 End: 92-24-7320Dmqhxhw encounter /17/2025 2:00 PM EDT Office Visit [facility] [place] [address] [place] [address] Nahomy Salomon DO [address] [place], [place] [id number] KEYON COREASBORAtart: 11-16-2024 End: 30-63-5621Zpkgfhf encounter procedureANA BELLPRINCEUEComment on above:Arrived Start: 11-07-2024 End: 01-30-3662Qloeuvl encounter qelrsihtr58/18/2025 9:15 AM EDT Office Visit [facility] [place] [address] [place] [phone] Dennys Obregon, DO [address] [place] [address] NOMJuan J BENSONYStart: 11-02-2024 End: 38-33-7174Tdgetqn encounter taksaodxw29/13/2025 2:15 PM EDT Office Visit [facility] MENJIVAR [address] [place] [phone] Nahomy Salomon, DO [address] [place] [address] KEYON PARSONtart: 10-12-2024 End: 71-54-1855Kpafuje encounter procedureANA OTTOComment on above:Arrived Start: 09-26-2024 End: 58-92-4602Whzdyor encounter procedureNOMS ENT KAYLEIGHLAKIAYComment on above: ArrivedStart: 08-21-2024 End: 61-37-6182Xkpxfql encounter qrvlsopkb69/30/2024 3:30 PM EST Office Visit [facility] [address] [place] [phone] Dennys Obregon, DO [address] [place] [address] ArrivedNOMS ENT KELLEYYComment on above:ArrivedStart: 05-15-2024 End: 05-55-8004Xmcnaxx encounter /23/2024 3:00 PM EDT Office Visit [facility] [address] [place] [address] Dennys Obregon, DO [address] [place] [address] NOMS LOUIE VICTORUSKYStart: 95-67-8110Agldcluqq vaccination Influenza Vaccine (#1)NOMS HealthcareStart: 1971NeqbbmjnfHenry County Hospitaltart: 23-43-4160Cvkyseshf for malignant neoplasm of colonNOMS Healthcare Patient EducationSt. Rita'S Hospital Work Phone: [facility] Immunizations Immunization DateImmunizationNotesCare FrytcrrmApzkyrll80-47-6609neyvxgz toxoid, reduced diphtheria toxoid, and acellular pertussis vaccine, adsorbedDavid Quinn [facility] 08-28-554096-85-9857qfpcabymjy, tetanus toxoids and acellular pertussis vaccine, unspecified formulation; Translations:[Encounter for immunization]Terrell [place] - [employer] [place] [employer] [facility] [id number]-DTS-3 (COVID-19) vaccine, mRNA, spike protein, LNP, preservative free, 100 mcg/0.5mL doseDavid [place] [employer] [id number]-LVI-1 (COVID-19) vaccine, vector non- replicating, recombinant spike protein-Ad26, preservativefree, 0.5 mLDavid [place] in - [employer] Payers DatePayer CategoryPayerPolicy [id number] Health InsuranceFRONTPATH Member Subscriber Plan / Payer (Effective 2022-Present) Name: Adalberto Varma Relation to Subscriber: Spouse Name: Malorie Varma Date of : 1977 (Home) Address: [address] [address] PayerID: Not on file Type: Not on file Address: [address] [id number] 40-80-4384DccglezHMPTDUAEJ FRONTPATH [id number] 2022-Present [phone] [id number] [id number] 2.0.1.376186.96580328-65-1770Ouidhzy7308210 2..1.317240.3.579.2.902083-08-0169Dxkracb0153416 2.0.1.606726.3.579.2.650789-56-0160Shcjhxr0875694 2..1.445529.3.579.2.574591-32-8760Ezwnxcd1107975 2..1.269258.3.57[id number] 2..1.069999.3.579.2.426944-52-0616Wicrusb1135123 2..1.924464.3.579.2.875558-06-2227Uifbebr3301205 2..1.896752.3.579.2.458912-26-8926Sjtwkrj7217440 2..1.571261.3.579.2.693838-43-9991Sbztyov8808969 2..1.820400.3.57[id number] 2..1.245764.3.579.2.848835-62-4717Miiyqkj8262923 2..1.953600.3.579.2.197656-04-9317Yaoirqd5155092 2..1.038785.3.579.2.510481-04-1555Dcefdrk6988273 2.0.1.800014.[id number] 2.0.1.406450.3.579.2.531 [id number] 2..1.915862.3.579.2.531 Social History DateTypeDetailFacilityStart: 03-26-2023 End: 97-83-7212Hcj Assigned At [facility] [employer] Other Start: 08-12-2022 End: 66-47-5840Dlkbcya smoking status NHISEx-smoker (finding)[facility]tart: 76-13-8179Sxq Assigned At [facility]art: 70-73-7910Bbvuwyp smoking status NHISNever smoked tobacco [facility] HealthcareStart: 01-38-8777Kwpgipy use and exposureUser of smokeless tobaccoNOMS HealthcareHistory of tobacco useChews TobaccoNOMS HealthcareStart: 05-15-2024 End: 71-97-4782Tscqlanhm beverage intakeEx-drinker (finding)[facility] Healthcare Start: 03-26-2023 End: 91-82-2116Pfzbxdx of Social functionNOMS HealthcareHow often to you have a drink containing alcohol?NeverNOMS HealthcareStart: 99-72-7244Hqn many standard drinks containing alcohol do you have on a typical day?Patient does not drink [facility] HealthcareStart: 37-95-8563Lyz assigned at birthNot on fileNONH Healthcare SexMale (finding)[facility] Medical Equipment Procedure CodeEquipment CodeEquipment Original TextEquipment IdentifierDates ProcedureImplant ([id number])Implantation of hypoglossal nerve stimulator ()[id number] FDAStart: 16-24-0987Tcvkqwkqdosx of hypoglossal nerve stimulatorImplantable sleep apnoea treatment system, respiration-sensing ()[id number] FDAStart: 15-18-8842Niojtfqsvwyr of hypoglossal nerve stimulator()[id number] FDAStart: 08-11-2024 Goals DatePatient GoalDesired Activity/State Clinical Notes 07-22-2022 to 04-26-2025 Note Date & BqeoGlawExoksxup17-21-0869 Evaluation note* Diagnosis Onset Date Resolution Status Admit Date Hypersomnia acuteSept2024 12:29pmOSA (obstructive sleep apnea)acuteSept2024 12:29pmPrimary insomniaacuteSe2024 12:29pmSnoringacute April 26, 2025 12:29pm [facility] Work Phone: 1(688) 291-149004-30-2025 History of Present illness Narrative* Nahomy Salomon, DO - 12/20/2024 3:30 PM EDT Images from the original note were not included. No chief complaint on file. Subjective Adalberto Varma, 54 y.o., male HPI Past Medical History: Diagnosis Date Arthritis Diverticulitis GERD (gastroesophageal reflux disease) Sleep apnea Past Surgical History: Procedure Laterality Date COLONOSCOPY x3 HERNIA REPAIR x2 OTHER SURGICAL HISTORY Broken Jaw wired shut OTHER SURGICAL HISTORY 06/27/2024 DISE OTHER SURGICAL HISTORY 08/11/2024 Inspire Implant Family History Problem Relation Name Age of Onset Thyroid disease Mother Irma Varma Dementia Mother Irma Varma Other (Car accident) Father Asthma Brother Milan Varma Diabetes Brother Milan Varma Diabetes Brother Dmitriy Varma Social History Tobacco Use Smoking status: Never Smokeless tobacco: Current Types: Chew Substance Use Topics Alcohol use: Not Currently Allergies: Patient has no known allergies. General: No fever or chills HEENT: No nasal congestion or runny nose Pulmonary: No shortness of breath or cough Cardiovascular: No chest pain or palpitations GI: No nausea or vomiting : No dysuria or hematuria Musculoskeletal: No new aches or pains or muscle weakness Infectious: no recurrent fevers or infections Dermatologic: No rashes or skin lesions Neurologic: No new headaches or dizziness There were no vitals filed for this visit.There is no height or weight on file to calculate BMI. Neurologic exam: General: Normal body habitus, cooperative, pleasant Mental status: Awake, alert to person, place and time. Recent and remote memory are intact. Attention and concentration are normal. Fund of knowledge is appropriate for level of education. HEENT: NC/AT Cranial nerves: CN II: Visual ozuna full to confrontation. No loss of vision CN III, IV, : pupils equal round and reactive to light. Extraocular movements intact. No ptosis present. CN V: Facial sensation is normal. CN VII: Full and symmetric facial movement. CN VIII: Hearing is normal CN IX and X: Palate elevates symmetrically. CN XI: Shoulder shrug is normal bilaterally. CN XII: Tongue is midline without atrophy or fasciculation. Speech: Clear and fluent no aphasia or dysarthria Pronator drift: Negative bilateral upper extremity Coordination: Intact, no signs of dysmetria Good finger to nose and rapid alternating movements Sensory: Sensation is intact to light, temperature and vibratory touch throughout four extremities. Motor: LUE 5/5 RUE 5/5 LLE 5/5 RLE 5/5 Tone: Physiologic, no tremor, bradykinesia or rigidity DTR: Bilateral Biceps 2/4 Bilateral BR 2/4 Bilateral Patellar 2/4 No spasticity Gait: Normal to casual gait Romberg's Negative Review and summary of old records: Assessment/Plan Diagnoses and all orders for this visit: Primary insomnia - zolpidem (Ambien) 5 MG tablet; Take 1 tablet (5 mg) by mouth as needed at bedtime for sleep ARETHA (obstructive sleep apnea) - VNS Device Interrogation w/simple programming 3 or fewer parameters - Polysomnography; Future Hypersomnia Snoring 54 year old male with a severe ARETHA with a Split night AHI of 59. He has the inspire and working up on the programming. He has been doing well. He needs to use it more and sleep longer. He needs to get set up with his Inspire PSG to assess for efficacy of treatment. We did go down on the stimuli to 1.5 from 1.6 as it seemed to aggressive/strong. Plan Set sleep times and turn it on every night Ambien for the PSG to be sure he has adequate sleep and enough hours. Try it at home first 5mg 1-2 at bedtime PSG for inspire protocol Do not mix the THC gummies with the ambien Can turn it down if needed The diagnosis was all discussed with the patient. All questions were answered and they agreed with the treatment plan. Patient will call if there are any new issues or questions. Pt has been fully educated on their diagnosis, treatment options, follow up plan, and return instructions Return to clinic: documented in this encounterUniversity Health Truman Medical CenterMdnsvzqglw18-82-8750 History of Present illness Narrative* Nahomy Salomon, DO - 11/16/2024 2:30 PM EDT Images from the original note were not included. Chief Complaint Patient presents with INSPIRE Subjective Adalberto Varma, 54 y.o., male HPI Patient is here for his 2nd inspire visit. He did well with the 1st 1. He is having little difficulty tolerating it sometimes and has to press the pause button a couple times. He has not had any major side effects. The numbness and tingling he was previous sleeve experiencing seems to be better. The pulling in his neck region seems to be better he still feels like it is pushing midline a little bit however that too is improving. The incision sites look good no signs of infection. Past Medical History: Diagnosis Date Arthritis Diverticulitis GERD (gastroesophageal reflux disease) Sleep apnea Past Surgical History: Procedure Laterality Date COLONOSCOPY x3 HERNIA REPAIR x2 OTHER SURGICAL HISTORY Broken Jaw wired shut OTHER SURGICAL HISTORY 06/27/2024 DISE OTHER SURGICAL HISTORY 08/11/2024 Inspire Implant Family History Problem Relation Name Age of Onset Thyroid disease Mother Irma Varma Dementia Mother Irma Varma Other (Car accident) Father Asthma Brother Milan Varma Diabetes Brother Milan Varma Diabetes Brother Dmitriy Varma Social History Tobacco Use Smoking status: Never Smokeless tobacco: Current Types: Chew Substance Use Topics Alcohol use: Not Currently Allergies: Patient has no known allergies. General: No fever or chills HEENT: No nasal congestion or runny nose Pulmonary: No shortness of breath or cough Cardiovascular: No chest pain or palpitations GI: No nausea or vomiting : No dysuria or hematuria Musculoskeletal: No new aches or pains or muscle weakness Infectious: no recurrent fevers or infections Dermatologic: No rashes or skin lesions Neurologic: No new headaches or dizziness Vitals: 11/16/24 1438 BP: 134/88 Pulse: 84 SpO2: 96% There is no height or weight on file to calculate BMI. Neurologic exam: General: Normal body habitus, cooperative, pleasant Mental status: Awake, alert to person, place and time. Recent and remote memory are intact. Attention and concentration are normal. Fund of knowledge is appropriate for level of education. HEENT: NC/AT Cranial nerves: CN II: Visual ozuna full to confrontation. No loss of vision CN III, IV, : pupils equal round and reactive to light. Extraocular movements intact. No ptosis present. CN V: Facial sensation is normal except mild decreased pinprick and right anterior chin CN VII: Full and symmetric facial movement. CN VIII: Hearing is normal CN IX and X: Palate elevates symmetrically. CN XI: Shoulder shrug is normal bilaterally. CN XII: Tongue is midline without atrophy or fasciculation. Speech: Clear and fluent no aphasia or dysarthria Pronator drift: Negative bilateral upper extremity Coordination: Intact, no signs of dysmetria Good finger to nose and rapid alternating movements Sensory: Sensation is intact to light, temperature and vibratory touch throughout four extremities. Motor: LUE 5/5 RUE 5/5 LLE 5/5 RLE 5/5 Tone: Physiologic, no tremor, bradykinesia or rigidity DTR: Bilateral Biceps x Bilateral BR x Bilateral Patellar x Bilateral Achilles x No spasticity Gait: Normal to casual gait Romberg's Negative Review and summary of old records: Assessment/Plan Diagnoses and all orders for this visit: ARETHA (obstructive sleep apnea) - VNS Device Interrogation w/simple programming 3 or fewer parameters Hypersomnia Snoring 54-year-old male with obstructive sleep apnea leads to daytime hypersomnolence and snoring. Patientis now on inspire. He is here for his 2nd ramp up. He is doing well. The wrap Jose Luis Owen to help increase his voltage. We did increase his pause time to 25 minutes from 15 minutes. That if at any point in time it is uncomfortable he could go back down or stay at that level prior to going up. Plan Adjust the inspire change the pause time After the next visit he will likely need the sleep study Try to sleep for 7-8 hours If he has a longer time through the night that he can not sleep he can turn it off and turn it backon and it will turn on and 45 minutes Patient tolerated well We did discuss better sleep hygiene as he does have some poor sleep hygiene and habits Gradually escalate the parameters Call is any issues The diagnosis was all discussed with the patient. All questions were answered and they agreed with the treatment plan. Patient will call if there are any new issues or questions. Pt has been fully educated on their diagnosis, treatment options, follow up plan, and return instructions Return to clinic: 1 month documented in this encounterUniversity Health Truman Medical CenterGbunwlgksi86-77-0877 History of Present illness Narrative* Nahomy Salomon DO - 10/12/2024 1:15 PM EST Images from the original note were not included. Chief Complaint Patient presents with inspire Subjective Adalbertojessica Varma, 54 y.o., male HPI Pt is his here for his initial inspire turned on today. Jose Luis Owen the inspire up is with us todayalso. Patient is still having some discomfort from the leads and in his tongue and right jaw area. He has some numbness there was still feels like he is slurring his Ss. He has seen an improvement and feels like he is better than he was when I saw him at the sleep clinic for his CPAP compliance visit. The pain he was having has improved. He feels like he is 20 percent better than when he saw me last and he has about 10-15 percent from being at his baseline. The incision sites look good no signsof infection. Past Medical History: Diagnosis Date Arthritis Diverticulitis GERD (gastroesophageal reflux disease) Sleep apnea Past Surgical History: Procedure Laterality Date COLONOSCOPY x3 HERNIA REPAIR x2 OTHER SURGICAL HISTORY Broken Jaw wired shut OTHER SURGICAL HISTORY 06/27/2024 DISE OTHER SURGICAL HISTORY 08/11/2024 Inspire Implant Family History Problem Relation Name Age of Onset Thyroid disease Mother Irma Varma Dementia Mother Irma Varma Other (Car accident) Father Asthma Brother Milan Varma Diabetes Brother Milan Varma Diabetes Brother Dmitriy Varma Social History Tobacco Use Smoking status: Never Smokeless tobacco: Current Types: Chew Substance Use Topics Alcohol use: Not Currently Allergies: Patient has no known allergies. General: No fever or chills HEENT: No nasal congestion or runny nose Pulmonary: No shortness of breath or cough Cardiovascular: No chest pain or palpitations GI: No nausea or vomiting : No dysuria or hematuria Musculoskeletal: No new aches or pains or muscle weakness Infectious: no recurrent fevers or infections Dermatologic: No rashes or skin lesions Neurologic: No new headaches or dizziness Vitals: 10/12/24 1321 BP: 144/82 Pulse: 70 SpO2: 96% There is no height or weight on file to calculate BMI. Neurologic exam: General: Normal body habitus, cooperative, pleasant Mental status: Awake, alert to person, place and time. Recent and remote memory are intact. Attention and concentration are normal. Fund of knowledge is appropriate for level of education. HEENT: NC/AT Cranial nerves: CN II: Visual ozuna full to confrontation. No loss of vision CN III, IV, : pupils equal round and reactive to light. Extraocular movements intact. No ptosis present. CN V: Facial sensation is normal except mild decreased pinprick and right anterior chin CN VII: Full and symmetric facial movement. CN VIII: Hearing is normal CN IX and X: Palate elevates symmetrically. CN XI: Shoulder shrug is normal bilaterally. CN XII: Tongue is midline without atrophy or fasciculation. Speech: Clear and fluent no aphasia or dysarthria Pronator drift: Negative bilateral upper extremity Coordination: Intact, no signs of dysmetria Good finger to nose and rapid alternating movements Sensory: Sensation is intact to light, temperature and vibratory touch throughout four extremities. Motor: LUE 5/5 RUE 5/5 LLE 5/5 RLE 5/5 Tone: Physiologic, no tremor, bradykinesia or rigidity DTR: Bilateral Biceps x Bilateral BR x Bilateral Patellar x Bilateral Achilles x No spasticity Gait: Normal to casual gait Romberg's Negative Review and summary of old records: Assessment/Plan Diagnoses and all orders for this visit: ARETHA (obstructive sleep apnea) - VNS Device Interrogation w/simple programming 3 or fewer parameters Hypersomnia Snoring 54-year-old male with obstructive sleep apnea leads to daytime hypersomnolence and snoring. He is compliant with the CPAP machine but he is having difficulty tolerating it it was therefore decided toinsert the inspire. He is here today to turn the inspire on for his 1st visit. He understands thosewill take at least 3 visits to get him where he needs to be. This is absence of the rep Jose Luis Owen was used to get the device turned on. He is tolerating it well and he will gradually escalate the dose over the next month until we see him in October. He should discontinue using the CPAP machine however he could use it for naps if he would like to. Plan Inspire was turned on Patient tolerated well We did discuss better sleep hygiene as he does have some poor sleep hygiene and habits Gradually escalate the parameters Call is any issues The diagnosis was all discussed with the patient. All questions were answered and they agreed with the treatment plan. Patient will call if there are any new issues or questions. Pt has been fully educated on their diagnosis, treatment options, follow up plan, and return instructions Return to clinic: 1 month documented in this encounterUniversity Health Truman Medical [id number] History of Present illness Narrative* Dennys Obregon DO - 09/26/2024 9:15 AM EST HPI Patient presents today 1 month postop inspire implantation. Generally doing okay though he has got a lot of complaints about some soreness in his neck, being able to feel the lead in the neck, difficulty so this tongue, etcetera. He is scheduled for activation in a couple of weeks. Relevant postoperative physical examination Neck palpation does reveal some mild fibrosis around the incision but no palpable abnormality. Oral cavity examination shows the tongue is in the midline when it is protruded, nothing in the floor of mouth. Chest wall incision is well healed. Assessment/plan Adalberto was seen today for post-op. Diagnoses and all orders for this visit: ARETHA (obstructive sleep apnea) (Primary) Comments: I reassured the patient that this will get better. There is no significant finding on physical examination. I would like to see him back in about 6 weeks. documented in this encounterUniversity Health Truman Medical [id number] History of Present illness Narrative* Dennys Obregon DO - 08/21/2024 3:30 PM EST HPI Patient presents today about 10 days postop inspire implantation. He is doing fine. Relevant postoperative physical examination Examination shows both incisions are intact and healing nicely. Does have a little bit of submandibular swelling to be expected but no evidence of hematoma or seroma. Tongue protrudes in the midline. Assessment/plan Adalberto was seen today for post-op. Diagnoses and all orders for this visit: Obstructive sleep apnea (Primary) Comments: Patient given wound instructions, I will see him back in 1 month. documented in this encounterUniversity Health Truman Medical [id number] History of Present illness Narrative* Dennys Salinas Tyrellemirjerel, - 07/05/2024 3:45 PM EST Allergies as of 07/05/2024 (No Known Allergies) Past Medical History: Diagnosis Date Arthritis Diverticulitis GERD (gastroesophageal reflux disease) Sleep apnea Current Outpatient Medications: diclofenac (Voltaren) 75 MG EC tablet, Take 75 mg by mouth every 12 (twelve) hours, Disp: , Rfl: Past Surgical History: Procedure Laterality Date COLONOSCOPY x3 HERNIA REPAIR x2 OTHER SURGICAL HISTORY Broken Jaw wired shut OTHER SURGICAL HISTORY 06/27/2024 DISE Social History Socioeconomic History Marital status: Spouse name: Not on file Number of children: Not on file Years of education: Not on file Highest education level: Not on file Occupational History Not on file Tobacco Use Smoking status: Never Smokeless tobacco: Current Types: Chew Substance and Sexual Activity Alcohol use: Not Currently Drug use: Not Currently Sexual activity: Yes Partners: Female control/protection: Coitus interruptus Other Topics Concern Not on file Social History Narrative Not on file Social Drivers of Health Financial Resource Strain: Not on file Food Insecurity: Not on file Transportation Needs: Not on file Physical Activity: Not on file Stress: Not on file Social Connections: Not on file Intimate Partner Violence: Not on file Housing Stability: Not on file Subjective Patient ID: HPI Patient presents today status post drug-induced sleep endoscopy about a week or so ago. The time ofthe procedure it was noted that at least 80 percent of the airway obstruction secondary to posterior tongue movement which corrected with jaw thrusting. Very minimal lateral wall collapse. He has a candidate for inspire. Review of Systems ROS The specialty specific review of systems is noncontributory except for that recorded in the intake questionnaire and /or described in the history of present illness. Objective ENT Physical Exam Physical Exam Constitutional: Appearance: Normal appearance. HENT: Head: Atraumatic. Ears: External ear shows no abnormality Bilateral ear canals are clear Tympanic membranes intact, no evidence of middle ear fluid or other pathology. Nose: External nose appears to be normal Nares patent. Septal deviation to the right No evidence of polyp, mass or pus bilaterally. Oral Cavity: No evidence of trismus Lips appear normal Dental good Tongue of normal size and configuration, floor of mouth mucosa clear. Buccal mucosa shows no evidence of ulceration, mass or other abnormality Hard palate soft palate mucosa intact with no evidence of mass, ulceration or other abnormality Uvula of normal size and configuration Oropharynx: Tonsils atrophic Posterior pharyngeal wall normal Neck: No evidence of palpable abnormality Thyroid without evidence of thyromegaly or mass. No cervical lymphadenopathy present. Cardiovascular: Rate and Rhythm: Normal rate and regular rhythm. . Skin: General: Skin is warm and dry. Neurological: General: No focal deficit present. Mental Status: alert and oriented to person, place, and time. Assessment/Plan Adalberto was seen today for sleep apnea. Diagnoses and all orders for this visit: Obstructive sleep apnea (Primary) Comments: Patient is a candidate for the inspire and we discussed it with him. He would like to proceed. Intolerance of continuous positive airway pressure (CPAP) ventilation Comments: Patient has sleep apnea needs to be addressed and he is a candidate for inspire. The risks and benefits of implantation of a hypoglossal nerve stimulator(Inspire or similar device)were discussed with the patient. These include but are not limited to bleeding, infection, poor cosmetic outcome, scaring, need for further surgery, neurovascular injury, difficulty speaking or eating, damage to the marginal mandibular nerve, pneumothorax, need for a chest tube, need to explant the device, etc. The patient has consented to proceed. documented in this encounterUniversity Health Truman Medical [id number] History of Present illness Narrative* Dennys Obregon DO - 05/15/2024 3:00 PM EDT Allergies as of 05/15/2024 (No Known Allergies) Past Medical History: Diagnosis Date Arthritis Diverticulitis GERD (gastroesophageal reflux disease) Sleep apnea Current Outpatient Medications: diclofenac (Voltaren) 75 MG EC tablet, Take 75 mg by mouth every 12 (twelve) hours, Disp: , Rfl: Past Surgical History: Procedure Laterality Date COLONOSCOPY x3 HERNIA REPAIR x2 OTHER SURGICAL HISTORY Broken Jaw wired shut Social History Socioeconomic History Marital status: Spouse name: Not on file Number of children: Not on file Years of education: Not on file Highest education level: Not on file Occupational History Not on file Tobacco Use Smoking status: Never Smokeless tobacco: Current Types: Chew Substance and Sexual Activity Alcohol use: Not Currently Drug use: Not Currently Sexual activity: Yes Partners: Female control/protection: Coitus interruptus Other Topics Concern Not on file Social History Narrative Not on file Social Determinants of Health Financial Resource Strain: Not on file Food Insecurity: Not on file Transportation Needs: Not on file Physical Activity: Not on file Stress: Not on file Social Connections: Not on file Intimate Partner Violence: Not on file Housing Stability: Not on file Subjective Patient ID: HPI Patient is a 54-year-old male referred for consideration of inspire implantation. Patient is a long-time CPAP user over 10 years. Over the last year so he has grown completely intolerant of it and isnot using it very often. He underwent a sleep study about a month and a half ago revealing RDI of 49, significant awakenings and he spent 4 percent of the study with oxygen saturations less than 90 percent Review of Systems ROS The specialty specific review of systems is noncontributory except for that recorded in the intake questionnaire and /or described in the history of present illness. Objective ENT Physical Exam Physical Exam Constitutional: Appearance: Normal appearance. HENT: Head: Atraumatic. Ears: External ear shows no abnormality Bilateral ear canals are clear Tympanic membranes intact, no evidence of middle ear fluid or other pathology. Nose: External nose appears to be normal Nares patent. Septal deviation to the left about 60 percent No evidence of polyp, mass or pus bilaterally. Oral Cavity: No evidence of trismus Lips appear normal Dental good Tongue of normal size and configuration, floor of mouth mucosa clear. Buccal mucosa shows no evidence of ulceration, mass or other abnormality Hard palate soft palate mucosa intact with no evidence of mass, ulceration or other abnormality Uvula of normal size and configuration Oropharynx: Tonsils 1+ Posterior pharyngeal wall mild redundancy of the posterior wall. Neck: No evidence of palpable abnormality Thyroid without evidence of thyromegaly or mass. No cervical lymphadenopathy present. Cardiovascular: Rate and Rhythm: Normal rate and regular rhythm. . Skin: General: Skin is warm and dry. Neurological: General: No focal deficit present. Mental Status: alert and oriented to person, place, and time. FIBEROPTIC NASOPHARYNGOLARYNGOSCOPY A diagnostic flexible fiberoptic laryngoscopy was performed. The flexible fiberoptic laryngoscope was placed into the nose and advanced to the level of the tip of the epiglottis. Examination of the larynx including both surfaces of the epiglottis false and true vocal folds, arytenoids and surrounding mucosal surfaces show no evidence of lesion, ulceration or mass. Normal bilateral true vocal foldmotion is present. Bilateral piriform sinuses and base of tongue appear without lesion . Harris's maneuver performed at the level of the soft palate serous 100 percent obstruction, at the level of the hypopharynx shows at least 75 percent posterior tongue movement, very minimal lateral wall collapse less than 30 percent. Assessment/Plan Adalberto was seen today for sleep apnea. Diagnoses and all orders for this visit: Intolerance of continuous positive airway pressure (CPAP) ventilation (Primary) Comments: See above Obstructive sleep apnea Comments: Patient appears to be anatomically reasonable candidate for inspire. Orders: - Ambulatory referral to ENT I therefore recommended a drug-induced sleep endoscopy and he would like to proceed. We will get that approved by the insurance and schedule him once we do. documented in this [facility]08-28-2024 Telephone encounter Note* Telephone Encounter - Casa Paz MD - 04/19/2024 9:40 AM EDT Sent over a referral. Pt interested in Inspire [facility] [id number] Miscellaneous Notes* Telephone Encounter - Casa Paz MD - 04/19/2024 9:40 AM EDT Sent over a referral. Pt interested in Inspire documented in this encounterDebra Ville [id number] History of Present illness Narrative* Casa Paz MD - 04/19/2024 9:10 AM EDT Subjective Patient ID: Adalberto Varma is a 53 y.o. male who presents for Sleep Apnea (Follow up sleep study 04/11/24) Sleep study showed an AHI of 59 with a min O2 sat of 83%. Titrated to CPAP 10cm H2O. Pt wishes to consider inspire. Family History Problem Relation Name Age of Onset Thyroid disease Mother Irma Varma Dementia Mother Irma Varma Other (Car accident) Father Asthma Brother Milan Varma Diabetes Brother Milna Varma Diabetes Brother Dmitriy Varma Active Ambulatory Problems Diagnosis Date Noted Obstructive sleep apnea 03/26/2023 Diverticulitis 03/06/2024 NSAID long-term use 03/06/2024 ARETHA (obstructive sleep apnea) 03/06/2024 Resolved Ambulatory Problems Diagnosis Date Noted No Resolved Ambulatory Problems Past Medical History: Diagnosis Date Arthritis GERD (gastroesophageal reflux disease) Sleep apnea Past Surgical History: Procedure Laterality Date COLONOSCOPY x3 HERNIA REPAIR x2 OTHER SURGICAL HISTORY Broken Jaw wired shut No Known Allergies Current Outpatient Medications on File Prior to Visit Medication Sig Dispense Refill diclofenac (Voltaren) 75 MG EC tablet Take 75 mg by mouth every 12 (twelve) hours No current facility-administered medications on file prior to visit. Objective Last Recorded Vitals Vitals: 04/19/24 0920 BP: 138/81 ENT Physical Exam Constitutional Appearance: patient appears well-developed, well-nourished and well-groomed, Communication/Voice: communication appropriate for developmental age; vocal quality normal; Assessment/Plan Diagnoses and all orders for this visit: Obstructive sleep apnea Pt clearly will benefit from tx of his ARETHA, but before ordering a new CPAP, I will have him see Dr Obregon to talk about Inspire documented in this encounterUniversity Health Truman Medical [id number] History and physical note Author Geovanni Morales [facility] August 12, 2022 10:39amNote Date/TimeDece2021 10:39am[place] [address] Gastroenterology H&P Signed Patient: Adalberto Varma MR#: [id number] 1210 : 1970 Acct:[id number] Age/Sex: 52 / M Adm Date: 2 Loc: Room: Type: [facility] Attending Dr: eGovanni Morales MD Copies to: MD Karen Bruner MD~ Date of Service: 08/12/2022 HISTORY & PHYSICAL: Patient's history with special attention to the cardiovascular, pulmonary systems and the current problem was reviewed with the patient immediately prior to the procedure. Present medications and doses reviewed in the EMR. Allergies and pertinent laboratory tests were also re viewedat this time in the EMR. The physical examination, as below, was then performed. Indication, assessment and HPI: 52-year-old male presents for colonoscopy to evaluate history of recurrent diverticulitis. Completed antibiotics about 3 months prior. Bowel movements have returned tonormal. Abdominal pain is completely resolved. Family history [...] signed by Geovanni Morales MD> 08/12/[address] [facility] Work Phone: [phone]) 838-695412-21-2022 [facility]Prov[facility] Evaluation note* Encounter Date Diagnosis Assessment Notes Treatment Notes Treatment Clinical Notes Jun, Diverticulitis (ICD-10 - K57.92) Colonoscopy [facility] Other Evaluation noteNo assessment information available [facility] Work Phone: Evaluation note* Diagnosis Obstructive sleep apnea- Primary Obstructive sleep apnea (adult) (pediatric) Intolerance of continuous positive airway pressure (CPAP) ventilation [facility] Diagnosis Obstructive sleep apnea- Primary Obstructive sleep apnea (adult) (pediatric) documented in this encounter [facility]* Diagnosis Intolerance of continuous positive airway pressure (CPAP) ventilation- Primary Obstructive sleep apnea Obstructive sleep apnea (adult) (pediatric) documented in this encounter [facility]* Diagnosis Obstructive sleep apnea- Primary Obstructive sleep apnea (adult) (pediatric) documented in this encounter [facility] note* Diagnosis ARETHA (obstructive sleep apnea)- Primary Obstructive sleep apnea (adult) (pediatric) documented [facility]* Diagnosis ARETHA (obstructive sleep apnea)- Primary Obstructive sleep apnea (adult) (pediatric) Hypersomnia Hypersomnia, unspecified Snoring Other dyspnea and respiratory abnormality documented in this encounter [facility] note* Diagnosis ARETHA (obstructive sleep apnea)- Primary Obstructive sleep apnea (adult) (pediatric) Hypersomnia Hypersomnia, unspecified Snoring Other dyspnea and respiratory abnormality documented in this encounter [facility] HealthcareEvaluation note* Diagnosis Primary insomnia- Primary Persistent disorder of initiating or maintaining sleep ARETHA (obstructive sleep apnea) Obstructive sleep apnea (adult) (pediatric) Hypersomnia Hypersomnia, unspecified Snoring Other dyspnea and respiratory abnormality documented in this encounter [facility] HealthcareEvaluation note* Encounter Date Assessment Date Assessment LastModified by Organization Details LastModified Time 04/19/2025 04/19/2025 Reviewed pre-phy sical labs in detail and copy provided. Abnormal values discussed below. Immunizations reviewed and UTD. Recommended: Dental cleanings 2x/yr Annual eye exams Annual flu vaccine Tdap every 10 years Shingles vaccine at age 50. Pneumonia vaccine at age 50 RSV vaccine at age 60 (50-59 with risk factors) Consider prostate cancer screening (PSA) at age 55-69 (sooner if indicated)with discussion of pros and cons Colon cancer screening (Colonoscopy, Cologuard or Colofit are options) starting at age 45 (or sooner if indicated). Annual Lung cancer screening (LDCT) for smokers at age 50-80 with 20pkyr history of smoking who continue to smoke or quite within past 15 years Reviewed age appropriate wellness including getting 7-8 hours of sleep at night, diet, activity (150 minutes of aerobic exercise + strength training), water intake, sun protection (limiting exposure,sunscreen, protective clothing/hats), and accident prevention (i.e. gun safety, wearing seatbelt, wearing helmets w/ bikes).cgiwnte27Zxo swatxmgxd31/26/2025 14:24:15 [place] [facility] Evaluation note No assessment recorded. [place] [facility] Narrative - Reported* Type Description Date Medical History diverticulitis Surgical Historybroken jaw - wired [id number] Historyhernia repair x2 Hospitalization Historysee above [facility] Other Hislhat general Narrative - ReportedNo medical history recorded.[facility] Discharge instructions Additional Instructions DISCHARGE INSTRUCTIONS [...] Follow up with PCP. - Office number [phone].[facility] Work Phone: reason for referral (narrative)No reason for referral information availableMercy Health [facility]rb[facility] Work Phone: reason for visit NarrativePATIENT HERE AT THE REQUEST OF DR KAREN SHAFER FOR EVALUATION & TREATMENT OF DIVERTICULITISForest City [employer] Other reason for visit Narrative* Other Medical (Routine) - Pending ReviewSpecialtyDiagnoses / ProceduresReferred By ContactReferred To Contact Diagnoses ARETHA (obstructive sleep apnea) Procedures VNS Device Interrogation w/simple programming 3 or fewer parameters Nahomy Salomon DO [address] [place] [address] Phone: tel: fax: Referral IDStatusReasonStart DateExpiration DateVisits RequestedVisits [id number] Review/ [facility] Healthcare Summary Purpose Family History Relationship Condition Age at Onset Recorded Date/T stefan Not Specified Malignant melanoma of skin Unknown DementiaUnknownThyroid troubleUnknownbrotherDiabetes mellitusUnknowngrandparent Heart problemUnknownfamily memberDiabetes mellitusUnknown Relationship Description Onset Age of this Age Resolved Age Notes LastModified by Organization Details LastModified Time Father Motor vehicle accident 75mltdbddj59Vim gxlueglxh56/28/2025 08:31:75UyzdzbDamseyfwlwcbidyu71Xrq slhdavsgs62/28/2025 08:31:51MotherThyroid caqgpmelnmjuwmzrfdq27Ovq available 04/19/2025 08:32:12MotherMalignant neoplasm of fppbolaxtbsh99Fwi available 04/19/2025 08:32:27 Relationship Condition Age at Onset Recorded Date/T stefan mother Malignant melanoma of skin Unknown Thyroid troubleUnknownDementiaUnknownbrotherDiabetes mellitusUnknowngrandparent Heart problemUnknownfamily memberDiabetes mellitusUnknownfatherDeceasedUnknown Advance Directives Advance Directive Response Recorded Date/ Time Advance Directives No March 25 2:56pm Advance Directive Response Recorded Date/ Time Advance Directives No July 11:56am Chief Complaint and Reason for Visit Chief Complaint diverticulitis Chief Complaint Admit Date Follow up April 26, 2025 12:29pm Reason for Visit Admit Date Hypersomnia April 26, 2025 12:29pm ARETHA (obstructive sleep apnea) April 26, 2025 12:29pm Primary insomnia April 26, 2025 12:29pm Snoring April 26, 2025 12:29pm Additional Source Comments (unrecognized sect ion and content) No Status Records FoundNo Status Records FoundNo Status Records Found INFORMATION SOURCE (unrecogn ized section and content) DATE CREATED AUTHOR 06/15/2022 [facility] DATE CREATED AUTHOR AUTHOR'S ORGANIZ ATION 10/26/2024 [facility] DATE CREATED AUTHOR AUTHOR'S ORGANIZ ATION 12/25/2024 [facility] EPIC Care Teams (unrecognized sec tion and content) Team Status: Active Member Role Status Dates Karen Shafer MD Primary Care Provider Active Team Status: Inactive Member Role Status Dates Karen Shafer MD Primary Care Provider Active Sta rt: April 26, 2025 End: April 26, 2025NicAnali Puckett ProviderActiveStart: April 26, 2025 End: April 26, 2025 Team Status: Inactive Member Role Status Dates Karen Shafer MD Primary Care Provider Active Gamal Bruner ProviderActiveTeam MemberRelationshipSpecialty Start DateEnd Date Karen Shafer MD [address] [place] [address] PCP - GeneralFanhly Medicine03/24/23 Casa Paz MD [address] [address] Asojzwgpofyjqa89/13/24 Dennys Obregon, DO [address] [place] [address] Gzvqyajbehemua07/13/24Team MemberRelationshipSpecialtyStart DateEnd Date Karen Shafer MD [address] [place] [place] [address] PCP - Generalmily Medicine03/24/23 Casa Paz MD [address] [address] Rwljlmodyroycp28/13/24 Dennys Obregon, DO [address] [address] Ckxnfdmmupoixn16/13/24Team MemberRelationshipSpecialtyStart DateEnd Date Karen Shafer MD [address] [place] [place] [address] [facility] - [facility]03/24/23Team MemberRelationshipSpecialtyStart DateEnd Date Karen Shafer MD [address] [place] [address] PCP - Generalmily Medicine03/24/23Team MemberRelationshipSpecialtyStart DateEnd Date Karen Shafer MD [address] [facility] [place] [address] PCP - Generalmily Medicine03/24/23Team MemberRelationshipSpecialtyStart DateEnd Date Karen Shafer MD [address] [place] [address] PCP - [facility] Medicine03/24/23Team MemberRelationshipSpecialtyStart [facility] Karen Shafer MD [address] [place] [address] PCP - [facility]03/24/23 Casa Paz MD [address] [place] [address] Ddqatdpojrgodz58/13/24 Dennys Obregon, [address] [place] [address] Dmiwnyosbqjrje63/13/24Te MemberRelationshipSpecialtyStart [facility] Karen Shafer MD [address] [place] [address] PCP - [facility]03/24/23 Casa Paz MD [address] [place] [address] Mzutivkbjffuls72/13/24 Dennys Obregon, [address] [place] [address] Sneenxlyzodzde55/13/24Team MemberRelationshipSpecialtyStart [facility] Karen Shafer MD [address] [place] [address] PCP - [facility]03/24/23 Casa Paz MD [address] [place] [address] Bvqwfoeulremdw08/13/24 Dennys Obregon, DO [address] [place] [address] Dkgaexgbtloqmp14/13/24 Nahomy Salomon, [address] [place] [address] Referring PhysicianNeurocascade medical centerTeam MemberRelationshipSpecialtyStart DateEnd Date Karen Shafer MD [address] [place] [address] [facility]03/24/23 Casa Paz MD [address] [place] [address] Ovnpdqvhrpjbtd13/13/24 Dennys Obregon, DO [address] [place] [address] Qosdfxpuvitagw72/13/24 Nahomy Salomon DO [address] [place] [address] Referring PhysicianNeurocascade medical centerTeam MemberRelationshipSpecialtyStart DateEnd Date Karen Shafer MD [address] [place] [address] [facility]03/24/23 Casa Paz MD [address] [place] [address] Sawvpywkdbfskt16/13/24 Dennys Obregon, DO [address] [place] [address] Vkocutngzwhwdf15/13/24 Nahomy Salomon, [address] [place] [address] Referring PhysicianNeurologTeam MemberRelationshipSpecialtyStart DateEnd Date Karen Shafer MD [address] [place] [address] [facility]03/24/23 Casa Paz MD [address] [facility] [address] [place] [address] Lyhekgygsnodvt62/13/24 Dennys Obregon, DO [address] [place] [address] Hxdrayoeifbzjv87/13/24 Nahomy Salomon, [address] [place] [address] Referring PhysicianNeurocascade medical centerTeam MemberRelationshipSpecialtyStart DateEnd Date Karen Shfaer MD [address] [place] [address] PCP - [facility]03/24/23 Casa Paz MD [address] [facility] [address] [place] [address] Cdrtcdafzoofnv43/13/24 Dennys Obregon, DO [address] [place] [address] Pdtuukvvbsrgdf77/13/24 Nahomy Salomon, [address] [place] [address] Referring PhysicianNeuronortheastern health [facility]09/15/24Team MemberRelationshipSpecialtyStart DateEnd Date Karen Shaefr MD [address] [place] [facility] [place] [address] [facility] Medicine03/24/23 Casa Paz MD [address] [facility] [address] [place] [address] Hiymomtxebcima31/13/24 Dennys Obregon, DO [address] [place] [address] Sblbypraegzayt80/13/24 Nahomy Salomon, [address] [place] [address] Referring PhysicianNeurologTeam MemberRelationshipSpecialtyStart End Date Karen Shafer MD [address] [place] [address] [facility]03/24/23 Casa Paz MD [address] [place] [address] Wwvtfpmnmxfziu45/13/24 Dennys Obregon DO [address] [place] [address] Yonkwpnoiqklwj61/13/24 Nahomy Salomon DO [address] [place] [address] Referring PhysicianNeurology1Team MemberRelationshipSpecialtyStart DateEnd Date Karen Shafer MD [address] [place], [place] [id number] [facility]/24/23 Casa Paz MD [address] [place] [address] Ncbfblnqdohvzx10/13/24 Dennys Obregon DO [address] [place] [address] Oixuuacmvyhbug99/13/24 Nahomy Salomon DO [address] [place] [address] Referring PhysicianNeurology1 Reason for Visit (unrecogniz ed section and content) ReasonCommentsSleep ApneaS/p DiceReasonCommentsSleep ApneaFollow up sleep study 04/11/24ReasonCommentsSleep ApneaSleep apnea - [facility] referralSpecialtyDiagnoses / ProceduresReferred By ContactReferred To ContactOtolaryngology Diagnoses Obstructive sleep apnea Procedures DE OFFICE/OUTPATIENT NEW HIGH MDM 60 MINUTES Casa Paz MD [address] [place] [address] Dennys Obregon, DO [address] [place] [address] Referral IDStatusReasonStart DateExpiration DateVisits RequestedVisits [id number] Specialty Services Required /[id number]-tgXsfi op InspireReasonCommentsPost-op1 month john Inspire implantReasonCommentsinspireSpecialtyDiagnoses / Procedures Referred By ContactReferred To Contact Procedures VNS Device Interrogation w/o programming Nahomy Salomon DO [address] [place] [address] Phone: tel: fax: Referral IDStatusReasonStart DateExpiration DateVisits RequestedVisits [id number]/[id number]dcdhc Diagnoses / ProceduresReferred By ContactReferred To Contact Diagnoses ARETHA (obstructive sleep apnea) Procedures VNS Device Interrogation w/simple programming 3 or fewer parameters Nahomy Salomon DO [address] [place] [address] Phone: tel: fax: Referral IDStatusReasonStart DateExpiration DateVisits RequestedVisits [id number] Review/ Goals (unrecognized section and content) Goals may be documented in a n alternate section FOR RECORDS PERTAINING TO PATIENTS WHO ARE [...] BE BASED ON THE PRIMARY CLINICAL RECORDS. [facility] provides no warranty or guarantee of the accuracy or completeness of information in this document.
--- OUTSIDE RECORDS SUMMARY | 2025-06-28 21:02 | XMS_ITS | Patient Health Record ---
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 No Hqgvda8TsbwxgblskryrgSmlynqwmTbesqgz Control (Standard) Question Answer Notes Tobacco use: Nonsmoker Problems Problem Type SNOMED Code ICD Code Onset Dates Problem Status W/U Status Risk Notes Problem Bilateral primary osteoarthr itis of knee (M17.0) [id number] osteoarthritis of right knee (M17.11)[id number] long-term use (Z79.1)Active confirmed Encounters Encounter Location Date Provider Diagnosis [facility] [address] [place] [address] 06/06/2025 Paty Beltran Bilateral primary osteoarthritis of knee M17.0 [facility] [address] [place] [address] 04/04/2025 Jarred Ta Pain in right knee M25.561 ; Pain in left knee M25.562 ; Bilateral primary osteoarthritis of knee M17.0 and Left lateral epicondylitis M77.12 [facility] [place] [address] [place] [address] 07/24/2024 Paty Beltran Assessments Encounter Date Diagnosis (ICD Code) Assessment Notes Treatment Notes Treatment Clinical Notes Section Notes 04/04/2025 Pain in right knee (ICD-10 - M25 .561) 04/04/2025Pain in left knee (ICD-10 - M25.562)06/06/2025ilateral primary osteoarthritis of knee (ICD-10 - M17.0)04/04/2025ilateral primary osteoarthritis of knee (ICD-10 - M17.0)04/04/2025Left lateral epicondylitis (ICD-10 - M77.12)06/06/2025Other Patient is doing well and may continue the diclofenac as needed. He will call with any concerns andotherwise follow-up as needed. Plan has been agreed upon by my supervising physician, [MD Zane. 04/04/2025Other For his bilateral knee osteoarthritis and left tennis elbow we will place him back on diclofenac which has provided good symptomatic relief in the past. I have also recommended a tennis elbow strap. He will follow-up in 2 months to reassess his response to the medications. If symptoms do not improve we have discussed the option of corticosteroid injections. Import medication Plan Of Treatment Pending Test Test Name Order Date MRI : Knee W/O Contrast Right - 30959 MRI : Elbow W AND W/O Contrast LEFT - 73 223 05/15/2024 Creatinine 05/15/2024 SCC- KNEE 4 VIEW LEFT-[id number] 04/04/2025 SCC- KNEE 4 VIEW RIGHT 34521 04/04/2025 SCC- KNEE 4 VIEW RIGHT 06586 06/21/2023 SCC- ELBOW 3 VIEW LEFT 13285 05/15/2024 Insurance Providers Payer Name Payer Address Payer Phone Subscriber Number Group Number Insured Name Patient Relationship to Insured Coverage Start Date [facility]age End Date [facility] [address] [place] [phone] [phone] [id number] [employer]KEY Spouse - patient is the spouse of the insured 5 Medications Administered Medication Instructions Date of Administration Dosage Notes BUPIVACAINE mLDepo-Mztbxq41 lFquqyeumbc75/07/20241 mL Medical (General) History Medical History History ICD Code GI Problems: Sleep apneaInspire implantSurgical History Surgery Date(Month/Year) Inspire implant 07/2024
== END 2025-06-28 20:59 | disposition home or self-care (01) ==
PROVIDERS: Family Provider Family Medicine; PCP Psychiatry & Neurology Neurology; Visit Provider Psychiatry & Neurology Neurology
DX: G47.33 Obstructive sleep apnea (adult) (pediatric) (principal)
CPT/HCPCS: 95810